=== PATIENT | female | born 1955 | race Caucasian/White ===

== ENCOUNTER 2017-06-04 15:13 | Inpatient (IN) | payer MEDICARE, OTHER ==
[~2017-06-04] VITALS: Ht 160 cm; Wt 59.4 kg
[~2017-06-04 15:13] MED LIST: ACET325S18 PO; ASPI-495 PO; BISA10SU15 RC; BUME2TAB3 PO; BUSP10TA35 PO; CALC-834 PO; CARI350T PO; CHOL200026 PO; CLON0.5T23 PO; DICY10CA59 PO; ESCI20TA PO; ETAN50PE SQ; FENT1PAT2 TD; FOLI1TAB16 PO; HYDR8TAB18 PO; LACT10SO PO; LAMO25TA4 PO; LEVO137T PO; LORA-258 PO; METH2.5T PO; MIDO5TAB PO; MIRT15TA7 PO; MULT1CAP34 PO; PANT40TA4 PO; POLY17PO12 PO; POTA20TA10 PO; PRED5TAB PO; PROC10TA PO; [UNRECOGNIZED DRUG - OTHER]
[2017-06-04] MEDS ORDERED: ONDANSETRON HCL/PF 4 MG/2 ML VIAL IVP ONE (15:30)
[2017-06-04] MEDS ORDERED: IV NS 0.9% 1,000 ML BAG IV ONE ×2 (15:30→21:00)
--- NOTE | 2017-06-04 15:33 | NUR ---
PT BIB RA C/O GENERALIZED WEAKNESS AND BODY PAIN WHICH SHE DESCRIBES "LIKE MY RHEUMATOID ARTHITIS PAIN" X2 DAYS. DENIES FEVER, CHILLS, COUGH, COLD, N/V/D. RESP EVEN UNLABORED. SKIN WARM NONDIAPHORETIC. PT STATES SHE FEELS "LIKE CRAP". IN ER BED 06.
[2017-06-04] MEDS ORDERED: MORPHINE SULFATE INJ 10 MG/ML DISP.SYRIN ONE (15:44)
[2017-06-04] MEDS ORDERED: ONDANSETRON HCL/PF 4 MG/2 ML VIAL ONE (15:44)
[2017-06-04 15:48] LABS: BASOPHILS % (AUTO) 0.4 % (0.0-2.0); EOSINOPHILS # (AUTO) 0.2 /CMM (0.0-0.7); EOSINOPHILS % (AUTO) 1.9 % (0.0-6.0); HEMATOCRIT 44 % (33-45); HEMOGLOBIN 14.5 g/dL (11.5-14.8); LYMPHOCYTES # (AUTO) 1.6 /CMM (0.8-4.8); LYMPHOCYTES % (AUTO) 14.4 % (20.0-44.0); MEAN CORPUSCULAR HEMOGLOBIN 30 PG (26.0-33.0); MEAN CORPUSCULAR HGB CONC 33 g/dl (31.0-36.0); MEAN CORPUSCULAR VOLUME 92 fL (82-100); MONOCYTES % (AUTO) 9.3 % (2.0-12.0); NEUTROPHILS # (AUTO) 8.3 /CMM (1.8-8.9); PLATELET COUNT (AUTO) 325 /CMM (150-450); RDW COEFFICIENT OF VARIATION 12.8 (11.5-15.0); RED BLOOD CELL COUNT(AUTO) 4.75 MIL/uL (4.0-5.2); WHITE BLOOD COUNT (AUTO) 11.1 K/uL (4.3-11.0)
[2017-06-04 15:58] LABS: CREATININE 0.7 mg/dL (0.6-1.3); POTASSIUM 3.3 mmol/L (3.5-5.1)
[2017-06-04] MEDS ORDERED: MORPHINE SULFATE INJ 2 MG/ML DISP.SYRIN IV ONE (16:00)
[2017-06-04 16:04] LABS: ALBUMIN 3.8 g/dL (3.4-5.0); BILIRUBIN,DIRECT 0.1 mg/dL (0.0-0.2); BILIRUBIN,TOTAL 0.2 mg/dL (0.2-1.0); TOTAL PROTEIN, SERUM 7.3 g/dL (6.4-8.2)
[2017-06-04] MEDS ORDERED: IOHEXOL-300 100 ML VIAL IV ONE (16:15)
[2017-06-04] MEDS ORDERED: IV NS 0.9% 250 ML IV ONE (16:16)
--- NOTE | 2017-06-04 17:40 | NUR ---
RAJI, NURSING PACKING FLOOR WORKER, AT BEDSIDE ATTEMPTING TO START IV AFTER 4 OTHER RNS UNABLE TO START IV WHICH CAN SUPPORT IV CONTRAST.
--- NOTE | 2017-06-04 18:04 | NUR ---
URINE SAMPLE OBTAINED BY IN AND OUT CATH PER
[2017-06-04 18:17] LABS: APPEARANCE,URINE Slightly Cloudy (CLEAR); BILIRUBIN,URINE SMALL (NEGATIVE); BLOOD, URINE Moderate Ery/uL (NEGATIVE); COLOR,URINE Yellow (YELLOW); KETONES,URINE Negative (NEGATIVE); LEUKOCYTE ESTERASE ,URINE Negative (NEGATIVE); NITRITE, URINE Positive (NEGATIVE); PROTEIN,URINE 30 mg/dl (NEGATIVE); UGLUCOSE Negative (NEGATIVE)
[2017-06-04 18:36] LABS: BACTERIA,URINE Moderate /HPF (None Seen); RBC,URINE 21-50 /HPF (0-2); SQUAMOUS EPITHELIAL CELL,UR Few /HPF (None Seen)
[2017-06-04] MEDS ORDERED: HYDROMORPHONE 1 MG/1 ML DISP.SYRIN ONE (18:40)
[2017-06-04] MEDS ORDERED: HYDROMORPHONE 1 MG/1 ML DISP.SYRIN IV ONE (19:00)
--- NOTE | 2017-06-04 19:13 | NUR ---
REPORT RECEIVED FORM ANDREW HELLER FOR JACOBO.
--- NOTE | 2017-06-04 19:25 | NUR ---
DR. MORIN AT BEDSIDE SPEAKING TO PT REGARDING POC
[2017-06-04] MEDS ORDERED: HYDROMORPHONE INJ 2 MG/ML DISP.SYRIN IV ONE (19:30)
[2017-06-04] MEDS ORDERED: HYDROMORPHONE INJ 2 MG/ML DISP.SYRIN ONE (19:36)
--- NOTE | 2017-06-04 19:46 | NUR ---
TANSPORTED TO CT VIA STETCHER. VSS.
--- NOTE | 2017-06-04 20:04 | NUR ---
PT BACK FROM CT, VSS.
--- NOTE | 2017-06-04 20:52 | NUR ---
CALLED [facility], INTERN BRAND WAS PAGED.
[2017-06-04] MEDS ORDERED: CEFTRIAXONE 1GM BAG (ER ONLY) 1 GM/50 ML PIGGYBACK IV ONE (21:00)
[2017-06-04] MEDS ORDERED: CEFTRIAXONE 1GM BAG (ER ONLY) 50 ML IV ONE (21:02)
--- NOTE | 2017-06-04 21:08 | NUR ---
MEDICATED PER MD ORDERS.
[2017-06-04] MEDS ORDERED: LORA1TAB82 PO (21:17)
[2017-06-04] MEDS ORDERED: FENT1PAT6 TD (21:39)
--- NOTE | 2017-06-04 22:05 | NUR ---
LAB AT BEDSIDE FOR 2ND LACTIC DRAW
--- NOTE | 2017-06-04 22:45 | NUR ---
PT ADMIT TO TELE RM 309 BED 2, REPORT GIVEN TO ANDREW IZAGUIRRE FOR JACOBO.
[2017-06-04 23:00] VITALS: BP 104/60
--- NOTE | 2017-06-04 23:05 | NUR ---
PT TRANSPORTED TO [facility] 309 BED2 VIA STRETCHER WITH RN, ACLS PROTOCOL. VSS.
--- NOTE | 2017-06-04 23:10 | NUR ---
ADMISSION NOTES: RECEIVED REPORT FROM [facility] PT FROM [facility], CAME IN FOR ABDOMINAL PAIN, N/V, DIARRHEA X3DAYS, BROUGHT TO THE UNIT VIA RADHA, PT A/O X3, ON RA, RESPIRATION EVEN AND UNLABORED, C/O" PAIN FROM WAIST DOWN DUE TO ARTHRITIS" PT VERBALIZED, PT HAS LEFT THUMB IV ACCESS, AND ANN IV, BOTH PATENT AND FLUSHING WELL, ON HL. ORIENTED PT TO UNIT POLICY AND HOURLY ROUNDING, SKIN ASSESSMENT PERFORMED, ALL SKIN ISSUE NOTED DOCUMENTED IN THE SKIN PROBLEM ASSESSMENT, TELE MONITORING SINUS RHYTHM HR 80, PT REQUESTING FELICIANO CATHETER, WILL CALL , INVENTORY OF BELONGINGS COMPLETED BY CRESCENCIO HINOJOSA, SAFETY PRECAUTIONS FOR FALL INITIATED CALL LIGHT IN REACH, WILL CONTINUE TO MONITOR.
--- NOTE | 2017-06-04 23:15 | NUR ---
RN NOTES: NOTED FENTANYL PATCH ON PT'S UPPER ABDOMINAL AREA, STATED THAT'S FOR THE ABDOMINAL PAIN SHE'S BEEN HAVING, PLACED WHEN SHE'S IN [place] [employer] [facility] [employer]
[2017-06-04] MEDS ORDERED: ACETAMINOPHEN 325 MG TABLET PO PRN (23:30)
[2017-06-04] MEDS ORDERED: ZOLPIDEM TARTRATE 5 MG TABLET PO PRN (23:30)
[2017-06-04] MEDS ORDERED: ONDANSETRON HCL/PF 4 MG/2 ML VIAL IV PRN (23:30)
--- NOTE | 2017-06-04 23:49 | NUR ---
RN NOTES: CONTACTED DR SCHULTZ, REGARDING PT INSISTING TO HAVE FELICIANO CATHETER, SHE STATED SHE'S HAVING A HARD TIME WALKING TO THE BATHROOM AND URINATING, DUE TO HER ARTHRITIS, EXPLAINED TO THE PT THAT SHE ALREADY HAVE UTI, AND HAVING FELICIANO CATHERER IS NOT A GOOD OPTION, COULD POSSIBLY AGGRAVATE HER INFECTION. TALKED TO DR SCHULTZ, RELAYED PT REQUEST, PER MD STATED NO TO FELICIANO CATHETER, AND ORDERS TO GIVE NORCO 10/325 MG TAB Q6HR PRN FOR 8-10 PAIN, INFORMED MD PT ALLERGIC TO CODEINE, PER MD TO NOT GIVE NORCO, BUT INSTEAD GIVE MORPHINE 1MG IVP Q4HR PRN FOR 8-10 PAIN, AWARE OF CODEINE ALLERGY.
--- NOTE | 2017-06-04 23:50 | NUR ---
RN NOTES: MD AWARE OF POTASSIUM LEVEL 3.3, NO ORDERS AT THIS TIME
[2017-06-05] VITALS: BP 107/60
[2017-06-05] MEDS ORDERED: MORPHINE SULFATE INJ 10 MG/ML DISP.SYRIN IV PRN
--- NOTE | 2017-06-05 | NUR ---
RN NOTES: PT'S WILLING TO RECEIVE FLU VACCINE PRIOR TO DC
--- NOTE | 2017-06-05 | NUR ---
RN NOTES: PT REFUSED SCD, DUE TO ARTHRITIS PAIN, EDUCATION PROVIDED TO THE PT
[2017-06-05] MEDS ORDERED: MORPHINE SULFATE INJ 10 MG/ML DISP.SYRIN ONE ×2 (00:17→05:36)
[2017-06-05] MEDS: MORPHINE SULFATE INJ 10 MG/ML DISP.SYRIN IV PRN ×3 (00:23→09:30)
--- NOTE | 2017-06-05 00:23 | NUR ---
prn morphine: pt c/o 03/11 pain from abdomen to waist down stating due to arthritis, p[rn morphine 1mg ivp administered to the pt at this time, will continue to monitor and reassess
--- NOTE | 2017-06-05 02:30 | NUR ---
RN NOTES: SEEN PT SLEEPING AT THIS TIME, NO FACIAL GRIMACE NOTED, APPEARS COMFORTABLE
[2017-06-05 04:00] VITALS: BP 101/59
--- NOTE | 2017-06-05 05:39 | NUR ---
prn morphine: pt called crying c/o 03/11 abdominal pain down to her waist due to arthritis pain as pt verbalized, requesting for morphine, prn morphine 1mg ivp administered to the pt at this time, will continue to monitor and reassess,
--- NOTE | 2017-06-05 06:39 | NUR ---
309-2 rn closing notes: pt in bed, awake, on ra, no sob noted, last pain medication administered at 0539am, iv access remains patent and flushing well, both on hl. remains on sinus rhythm hr 80, vs remains stable, needs attended, fenatnyl patch on upper abdominal area, safety precautions for fall remains engaged, call light in reach, will endorse to day rn for eleazar.
[2017-06-05 07:21] LABS: BASOPHILS # (AUTO) 0.1 /CMM (0.0-0.2); EOSINOPHILS # (AUTO) 0.3 /CMM (0.0-0.7); EOSINOPHILS % (AUTO) 4.2 % (0.0-6.0); HEMATOCRIT 39 % (33-45); HEMOGLOBIN 12.8 g/dL (11.5-14.8); LYMPHOCYTES # (AUTO) 1.7 /CMM (0.8-4.8); LYMPHOCYTES % (AUTO) 24.1 % (20.0-44.0); MEAN CORPUSCULAR HEMOGLOBIN 30 PG (26.0-33.0); MEAN CORPUSCULAR HGB CONC 33 g/dl (31.0-36.0); MEAN CORPUSCULAR VOLUME 92 fL (82-100); MONOCYTES # (AUTO) 0.6 /CMM (0.1-1.30); MONOCYTES % (AUTO) 8.7 % (2.0-12.0); NEUTROPHILS # (AUTO) 4.4 /CMM (1.8-8.9); RDW COEFFICIENT OF VARIATION 13.7 (11.5-15.0); RED BLOOD CELL COUNT(AUTO) 4.21 MIL/uL (4.0-5.2); WHITE BLOOD COUNT (AUTO) 7.1 K/uL (4.3-11.0)
--- NOTE | 2017-06-05 07:30 | NUR ---
FILBERT GROWER OPENING NOTE RECEIVED SBAR REPORT AT THE BEDSIDE. PATIENT IS A/O X3, ASLEEP, EASILY AWAKEN. PATIENT IS IN BED, BED IS LOCKED IN LOWEST POSITION, SIDE RAILS UP X3, BED ALARM ON. PATIENT IN RAZOLA'S POSITION. NO S/S PAIN/DISCOMFORT AT THIS TIME. CHEST RISING EQUALLY BILATERALLY, NO DYSPNEA ON REST PRESENT. EXTERNAL MONITOR READING SR 81. ALL NEEDS ARE MET AT THIS TIME. PATIENT EDUCATED TO USE THE CALL LIGHT TO CALL FOR ASSISTANCE. PT VERBALIZED UNDERSTANDING OF THE TEACHING. CALL LIGHT WITHIN REACH. WILL CONTINUE TO ASSESS/MONITOR THROUGHOUT THE SHIFT.
[2017-06-05 07:52] LABS: CALCIUM, SERUM 8.4 mg/dL (8.5-10.1); CREATININE 0.6 mg/dL (0.6-1.3); MAGNESIUM 1.7 mg/dL (1.8-2.4); PHOSPHORUS 3.5 mg/dL (2.5-4.9); POTASSIUM 3.4 mmol/L (3.5-5.1)
[2017-06-05 08:00] VITALS: BP 101/53
[2017-06-05] MEDS ORDERED: clonazePAM 0.5 MG TABLET PO PRN (08:30)
[2017-06-05] MEDS ORDERED: HYDROMORPHONE HCL 2 MG TABLET PO PRN ×2 (08:30)
[2017-06-05] MEDS ORDERED: PROCHLORPERAZINE MALEATE 10 MG TABLET PO SCH (08:30)
[2017-06-05 08:54] LABS: PLATELET COUNT (AUTO) 190 /CMM (150-450)
[2017-06-05] MEDS ORDERED: [UNRECOGNIZED DRUG - OTHER] PO SCH (09:00)
[2017-06-05] MEDS: MULTIVITAMINS,THERAGRAN 1 UDTAB TABLET PO SCH (09:25)
[2017-06-05] MEDS: LORAZEPAM 1 MG TABLET PO SCH (09:25)
[2017-06-05] MEDS: ESCITALOPRAM OXALATE (10 MG) 10 MG TABLET PO SCH (09:26)
[2017-06-05] MEDS: ASPIRIN EC 81 MG TABLET.DR PO SCH ×2 (09:26→09:39)
[2017-06-05] MEDS ORDERED: Magnesium 1GM/D5W 100ML PREMIX 100 ML IV SCH (10:00)
[2017-06-05] MEDS ORDERED: POTASSIUM CL. PREMIX PERIPHER. 50 ML IV SCH (10:00)
--- NOTE | 2017-06-05 12:26 | NUR ---
INSIDE SALES EXECUTIVE NOTE MAGNESIUM AND POTASSIUM WERE SCANNED AND ADMINISTERED AT 1059. MEDICATION WAS SCANNED BUT NOT PROCESSED IN EMAR. MEDICATIONS WERE ONLY ADMINISTERED ONCE ORDERED.
[2017-06-05] MEDS: HYDROMORPHONE INJ 2 MG/ML DISP.SYRIN IV PRN ×2 (15:03→19:33)
[2017-06-05] MEDS: Potassium Chloride 10 MEQ in IV D5/0.45 NACL 1,000 ML IV PRN (15:05)
[2017-06-05 16:00] VITALS: BP 112/63
--- NOTE | 2017-06-05 18:00 | NUR ---
AUTHORS MOTIVATIONAL NOTE PATIENT COMPLAINTS OF BURNING PAIN IN THE NEWLY INSERTED MIDLINE SITE. MIDLINE IS FLUSHED WITH GOOD BLOOD RETURN. NO S/S OF INFILTRATION. PER FABRICIO ASSISTANT PROFESSOR OF SURGERY'S SUGGESTION THE MIDLINE WAS PULLED BACK 1CM. PATIENT VERBALIZED RELIEF OF PAIN/PRESSURE. ARM IS ELEVATED. ICE BAG APPLIED TO THE SITE.
--- NOTE | 2017-06-05 18:17 | NUR ---
MORTAR MAN NOTE PATIENT DENIES PAIN/DISCOMFORT. PATIENT REFUSED CONTINUING THE IV FLUID PRESCRIBED STATING IT [id number] HER VESSELS AND IS THE CAUSE OF HER DISCOMFORT. PATIENT STATED SHE MAY RECONSIDER ALLOWING TO INFUSE THE FLUIDS LATER. WILL ENDORSE TO THE AERONAUTICS TEACHER NURSE TO ASK THE PATIENT LATER.
--- NOTE | 2017-06-05 18:48 | NUR ---
TALLIER CLOSING NOTE PATIENT IS A/O X3, ASLEEP, EASILY AWAKEN. PATIENT IS IN BED, BED IS LOCKED IN LOWEST POSITION, SIDE RAILS UP X3, BED ALARM ON. PATIENT IN ARZOLA'S POSITION. NO S/S PAIN/DISCOMFORT AT THIS TIME. CHEST RISING EQUALLY BILATERALLY, NO DYSPNEA ON REST PRESENT. ALL NEEDS ARE MET AT THIS TIME. PATIENT EDUCATED TO USE THE CALL LIGHT TO CALL FOR ASSISTANCE. PT VERBALIZED UNDERSTANDING OF THE TEACHING. WILL ENDORSE TO THE ARTS MANAGER FOR JACOBO.
--- NOTE | 2017-06-05 19:45 | NUR ---
MSRN VERBALIZES LOWER ABDOMINAL PAIN, OUTGOING RN ADMINISTERED DIL 2MG IVP ORDERED. REPOSITIONS SELF FOR COMFORT. NO SOB, SAFETY PRECAUTIONS EMPHASIZED, WELL UNDERSTOOD. PENDING PAIN MGT CONSULT.
[2017-06-05 20:00] VITALS: BP 105/61
--- NOTE | 2017-06-05 20:49 | NUR ---
MSRN ASLEEP, APPEARS COMFORTABLE.
[2017-06-05 20:51] VITALS: BP 105/61
[2017-06-05] MEDS: clonazePAM 0.5 MG TABLET PO SCH (21:51)
[2017-06-05] MEDS: MIRTAZAPINE 15 MG TABLET PO SCH (21:51)
[2017-06-05] MEDS: CEFTRIAXONE 1 G in IV D5W 50 ML IV SCH (21:58)
--- NOTE | 2017-06-05 22:08 | NUR ---
MSRN SEEN BY CHECK EMBOSSER OF DR. JULISA ABREU. INFORMED PAIN MEDS PATIENT TAKES. STILL NEEDS TO BE SEEN BY PAIN MGT CONSULT. PATIENT REQUESTED ATIVAN TONITE, MEDICATION REGIMEN REVIEWED WITH PATIENT. PER CHECK EMBOSSER CAN HAVE ANOTHER DOSE OF ATIVAN 1MG PO TONIGHT. PER CHECK EMBOSSER WILL BE STARTED ON LAXATIVES, PATIENT WANTED LAXATIVES TO BE STARTED TOMORROW INSTEAD. DUE MEDS FOR TONIGHT ADMINISTERED. KEPT COMFORTABLE.
[2017-06-05] MEDS ORDERED: LORAZEPAM 1 MG TABLET ONE (22:59)
[2017-06-05] MEDS ORDERED: LORAZEPAM 1 MG TABLET PO ONE (23:00)
[2017-06-06] MEDS: HYDROMORPHONE INJ 2 MG/ML DISP.SYRIN IV PRN ×6 (00:38→23:24)
--- NOTE | 2017-06-06 04:30 | NUR ---
MSRN ASSISTED TO RESTROOM, STATED WILL REFUSE LAXATIVES TODAY, STATED TOO WEAK TO GET OUT OF BED OFTEN. SUGGESTED BSC, REFUSED.
--- NOTE | 2017-06-06 05:25 | NUR ---
MSRN LEFT UPPER ARM MIDLINE SITE SWOLLEN, PER PATIENT DOES NOT FEEL PAIN ON THE SITE. HAVE ICU CN CHECK SITE. IVF HELD FOR NOW. ICU CN RESTARTED LINE ON LEFT JUGULAR GAUGE 20 WITH GOOD BLOOD RETURN. DILAUDED 2 MG IVP GIVEN PROIR TO INSERTION.
--- NOTE | 2017-06-06 07:40 | NUR ---
RN OPENING NOTES RECEIVED PT. IN BED A&OX4. BREATHING ON ROOM AIR UNLABORED AND EVENLY. NO S/S OF ACUTE DISTRESS. IV FLUIDS RUNNING VIA EXTERNAL JUGULAR VEIN AT 75 ML/HR. BED IS IN LOWEST, LOCKED POSITION, 2 SIDE RAILS UP, AND INSTRUCTED PT. TO USE A CALL LIGHT FOR ASSISTANCE. ALL NEEDS ATTENDED TO. WILL CONTINUE TO ASSESS AND MONITOR.
[2017-06-06 08:00] VITALS: BP 101/62
[2017-06-06] MEDS ORDERED: LACTULOSE 10 G/15 ML UDC (PYXIS) PO PRN (08:30)
[2017-06-06] MEDS ORDERED: POLYETHYLENE GLYCOL 3350 17 GM POWD.PACK PO PRN (08:30)
[2017-06-06] MEDS ORDERED: METHOTREXATE SODIUM (2.5MG) 2.5 MG TABLET PO SCH (08:30)
[2017-06-06] MEDS: LORAZEPAM 1 MG TABLET PO SCH (09:08)
[2017-06-06] MEDS: MULTIVITAMINS,THERAGRAN 1 UDTAB TABLET PO SCH (09:08)
[2017-06-06] MEDS: DOCUSATE SODIUM 100 MG CAPSULE PO SCH ×2 (09:08→16:37)
[2017-06-06] MEDS: ASPIRIN EC 81 MG TABLET.DR PO SCH (09:09)
[2017-06-06] MEDS: ESCITALOPRAM OXALATE (10 MG) 10 MG TABLET PO SCH (09:09)
[2017-06-06] MEDS: POLYETHYLENE GLYCOL 3350 17 GM POWD.PACK PO PRN ×2 (09:10→18:00)
[2017-06-06] MEDS ORDERED: BACL10TA PO (12:12)
[2017-06-06] MEDS ORDERED: CLON0.5T4 PO (12:12)
[2017-06-06] MEDS ORDERED: ALEN70TA45 PO (12:12)
[2017-06-06] MEDS ORDERED: LINA290C PO (12:12)
[2017-06-06] MEDS ORDERED: TOFA5TAB PO (12:13)
[2017-06-06] MEDS ORDERED: LAMO25TA5 PO (12:16)
--- NOTE | 2017-06-06 14:39 | NUR ---
RN NOTES CALLED DR. BEAR FOR NEW ORDERS, DUE TO PT. NAUSEA, PENTANOL PATCH, AND BENADRYL. Addendum: 06/06/17 at 1441 by RAJ RIVERS RN TALKED TO ANSWERING OUTSIDE B2B SALES AND WAS TOLD THAT DOCTOR WILL BE PAGED.
[2017-06-06 16:00] VITALS: BP 105/60
[2017-06-06] MEDS ORDERED: FENTANYL TD PATCH (50 MCG/HR) 50 MCG/HR PATCH.TD72 TD SCH (16:00)
[2017-06-06] MEDS: PROCHLORPERAZINE MALEATE 10 MG TABLET PO PRN (16:27)
[2017-06-06] MEDS: diphenhydrAMINE HCL 25 MG CAPSULE PO PRN (16:35)
--- NOTE | 2017-06-06 17:45 | NUR ---
RN NOTES PT. WAS SEEN AND EXAMINED BY MIDLINE NURSE. PT. HAD LEFT UPPER ARM MIDLINE REMOVED WITHOUT COMPLICATIONS, AND A NEW MIDLINE INSERTED ON THE LEFT UPPER ARM. LEFT UPPER ARM MIDLINE IS PATENT AND INTACT WITH IV FLUIDS RUNNING.
--- NOTE | 2017-06-06 19:18 | NUR ---
RN CLOSING NOTES PT. IN BED A&OX3. BREATHING UNLABORED, AND EVENLY ON ROOM AIR. NO S/S OF ACUTE DISTRESS. NEW MIDLINE ON RIGHT UPPER ARM IS RUNNING IV FLUIDS AT 75 ML/HR. BED IS IN LOWEST, LOCKED POSITION, 2 SIDE RAILS UP, AND INSTRUCTED PT. TO USE A CALL LIGHT FOR ASSISTANCE. ALL NEEDS ATTENDED TO. WILL ENDORSE REPORT TO NURSE.
--- NOTE | 2017-06-06 19:25 | NUR ---
RN OPEN NOTES RECEIVED PATIENT AWAKE IN BED. A/O X3. NO SIGNS OF DISTRESS OR DISCOMFORT. BREATHING EVEN AND UNLABORED. IV ACCESS IN LEJ AND ANN MIDLINE WITH KCL 20 MEQ IN D5 1/2 NS INFUSING, PATENT AND INTACT, NO SIGNS OF REDNESS OR INFILTRATION. BED IN LOW LOCKED POSITION WITH SIDE RAILS X2. CALL LIGHT WITHIN REACH. WILL CONTINUE TO MONITOR.
[2017-06-06 20:00] VITALS: BP 100/60
[2017-06-06] MEDS ORDERED: LamoTRIgine 25 MG TABLET PO SCH (20:00)
[2017-06-06] MEDS: CEFTRIAXONE 1 G in IV D5W 50 ML IV SCH (20:46)
[2017-06-06] MEDS: LamoTRIgine 25 MG TABLET PO SCH ×2 (20:47→23:24)
[2017-06-06] MEDS: MIRTAZAPINE 15 MG TABLET PO SCH (21:53)
[2017-06-06] MEDS: clonazePAM 0.5 MG TABLET PO SCH (21:53)
--- NOTE | 2017-06-06 22:02 | NUR ---
RN NOTES PATIENT REFUSED MAGNESIUM CITRATE X3. PATIENT STATES SHE WANTS TO TAKE IT IN THE AM BECAUSE SHE DOES NOT WANT TO KEEP GETTING UP TO GO TO THE RESTROOM. PATIENT EDUCATION REINFORCED. WILL CONTINUE TO MONITOR.
[2017-06-06] MEDS ORDERED: MAGNESIUM CITRATE 296 ML BOTTLE PO ONE (22:30)
--- NOTE | 2017-06-06 23:24 | NUR ---
RN NOTES ADMINISTERED DILAUDID 2MG ORDERED FOR PAIN 8/10 IN LOWER ABDOMEN RADIATING TO LOWER BACK. BP 122/70 P79. WILL CONTINUE TO MONITOR.
[2017-06-07] MEDS: HYDROMORPHONE INJ 2 MG/ML DISP.SYRIN IV PRN ×5 (03:33→20:37)
--- NOTE | 2017-06-07 03:33 | NUR ---
RN NOTES ADMINISTERED DILAUDID 2MG ORDERED FOR PAIN 8/10 IN LOWER ABDOMEN RADIATING TO LOWER BACK. BP 102/58 P81. WILL CONTINUE TO MONITOR.
[2017-06-07] MEDS: Potassium Chloride 10 MEQ in IV D5/0.45 NACL 1,000 ML IV PRN ×2 (05:40→22:23)
--- NOTE | 2017-06-07 07:47 | NUR ---
RN CLOSING NOTES PATIENT AWAKE IN BED. A/O X3. NO SIGNS OF DISTRESS OR DISCOMFORT. BREATHING EVEN AND UNLABORED. IV ACCESS IN LEJ AND ANN MIDLINE WITH KCL 20 MEQ IN D5 1/2 NS INFUSING, PATENT AND INTACT, NO SIGNS OF REDNESS OR INFILTRATION. ALL NEEDS MET. NO SIGNIFICANT CHANGES THROUGH THE NIGHT. BED IN LOW LOCKED POSITION WITH SIDE RAILS X2. CALL LIGHT WITHIN REACH. ENDORSED TO AM SHIFT FOR JACOBO.
--- NOTE | 2017-06-07 07:52 | NUR ---
RN MS NOTES PATIENT ALERT AND ORIENTED X3, COMPLAINING OF PAIN ABDOMINAL PAIN RADIATING TO THE BACK 10/10, WILL ADMINISTER PAIN MEDICATION. IVF INFUSING IN MIDLINE, WAREHOUSE INVENTORY CLERK ASSISTED PATIENT TO RESTROOM, SAFETY MEASURES IN PLACED, CALL LIGHT WITHIN REACH, WILL CONTINUE TO MONITOR.
[2017-06-07 08:00] VITALS: BP 128/71
[2017-06-07] MEDS: ASPIRIN EC 81 MG TABLET.DR PO SCH (08:11)
[2017-06-07] MEDS: ESCITALOPRAM OXALATE (10 MG) 10 MG TABLET PO SCH (08:11)
[2017-06-07] MEDS: DOCUSATE SODIUM 100 MG CAPSULE PO SCH ×2 (08:11→16:26)
[2017-06-07] MEDS: LORAZEPAM 1 MG TABLET PO SCH (08:11)
[2017-06-07] MEDS: MULTIVITAMINS,THERAGRAN 1 UDTAB TABLET PO SCH (08:11)
[2017-06-07] MEDS ORDERED: MINERAL OIL 133 ML (PYXIS) 1 EA ENEMA RC PRN (11:30)
[2017-06-07] MEDS ORDERED: MAGNESIUM CITRATE 296 ML BOTTLE PO ONE (11:30)
[2017-06-07 16:00] VITALS: BP 104/59
[2017-06-07] MEDS: PROCHLORPERAZINE MALEATE 10 MG TABLET PO PRN (16:29)
--- NOTE | 2017-06-07 18:38 | NUR ---
RN MS NOTES PATIENT ALERT AND ORIENTED X3, PATIENT HAD 1 LARGE BM AFTER ENEMA, COMPLAINS OF ABDOMINAL PAIN INTERMITTENTLY, CONTINUE ON IVF INFUSING AND TOLERATING WELL, ASSISTED WITH ADLS, CALL LIGHT WITHIN REACH, SAFETY MEASURES IN PLACED, WILL ENDORSE TO HOME DEMONSTRATOR FOR JACOBO.
--- NOTE | 2017-06-07 19:30 | NUR ---
RN NOTES PATIENT IS IN BED ALERT AND ORIENTED X3. VS STABLE. NO C/O PAIN AT THIS TIME. RESPIRATIONS EVEN AND UNLABORED. IV ACCESS ON ANN MIDLINE PATENT AND INTACT. INFUSING D5 1/2 NS + KCL 20 MEQ AT 75 ML/HR. NO REDNESS OR INFILTRATION NOTED. BED IN LOW POSITION. SIDE RAILS X2. CALL LIGHT WITHIN EASY REACH. CONTINUE TO MONITOR.
[2017-06-07 20:00] VITALS: BP 97/58
[2017-06-07] MEDS: LamoTRIgine 25 MG TABLET PO SCH ×2 (20:35→23:23)
--- NOTE | 2017-06-07 20:41 | NUR ---
RN NOTES PATIENT C/O PAIN IN ABDOMEN. DILAUDID 2 MG ADMINISTERED PRN. CONTINUE TO MONITOR.
[2017-06-07] MEDS: CEFTRIAXONE 1 G in IV D5W 50 ML IV SCH (20:52)
[2017-06-07] MEDS: clonazePAM 0.5 MG TABLET PO SCH (21:40)
[2017-06-07] MEDS: MIRTAZAPINE 15 MG TABLET PO SCH (21:40)
[2017-06-07] MEDS: diphenhydrAMINE HCL 25 MG CAPSULE PO PRN (21:40)
[2017-06-08] MEDS: HYDROMORPHONE INJ 2 MG/ML DISP.SYRIN IV PRN ×3 (01:27→09:47)
--- NOTE | 2017-06-08 01:32 | NUR ---
RN NOTES PATIENT C/O PAIN IN ABDOMEN. DILAUDID 2 MG ADMINISTERED PRN. CONTINUE TO MONITOR.
--- NOTE | 2017-06-08 05:24 | NUR ---
RN NOTES PATIENT C/O PAIN IN ABDOMEN. DILAUDID 2 MG ADMINISTERED PRN. CONTINUE TO MONITOR.
[2017-06-08 06:49] LABS: BASOPHILS % (AUTO) 0.5 % (0.0-2.0); EOSINOPHILS # (AUTO) 0.3 /CMM (0.0-0.7); EOSINOPHILS % (AUTO) 5.3 % (0.0-6.0); HEMATOCRIT 42 % (33-45); HEMOGLOBIN 13.8 g/dL (11.5-14.8); LYMPHOCYTES # (AUTO) 1.1 /CMM (0.8-4.8); MEAN CORPUSCULAR HEMOGLOBIN 31 PG (26.0-33.0); MEAN CORPUSCULAR HGB CONC 33 g/dl (31.0-36.0); MEAN CORPUSCULAR VOLUME 92 fL (82-100); MONOCYTES # (AUTO) 0.7 /CMM (0.1-1.30); MONOCYTES % (AUTO) 12.8 % (2.0-12.0); NEUTROPHILS # (AUTO) 3.1 /CMM (1.8-8.9); NEUTROPHILS % (AUTO) 59.4 % (43.0-81.0); PLATELET COUNT (AUTO) 279 /CMM (150-450); RDW COEFFICIENT OF VARIATION 13.6 (11.5-15.0); RED BLOOD CELL COUNT(AUTO) 4.53 MIL/uL (4.0-5.2); WHITE BLOOD COUNT (AUTO) 5.2 K/uL (4.3-11.0)
[2017-06-08 07:13] LABS: CALCIUM, SERUM 8.6 mg/dL (8.5-10.1); CREATININE 0.5 mg/dL (0.6-1.3); MAGNESIUM 2.1 mg/dL (1.8-2.4); PHOSPHORUS 3.7 mg/dL (2.5-4.9); POTASSIUM 3.8 mmol/L (3.5-5.1)
--- NOTE | 2017-06-08 07:15 | NUR ---
MS RN initial notes Received pt in bed,asleep,on room air, no SOB, no apparent distress noted. IV site ANN intact, patent.no s/sx of infiltration noted. On D5 1/2 NS @ 75 ml/hr. Call light within reach.Will continue to monitor accordingly. Safety measures implemented.
--- NOTE | 2017-06-08 07:25 | NUR ---
RN NOTES PATIENT IS SLEEPING IN BED, ALERT AND ORIENTED X3. VS STABLE. NO C/O PAIN AT THIS TIME. RESPIRATIONS EVEN AND UNLABORED. IV ACCESS ON ANN MIDLINE PATENT AND INTACT. INFUSING D5 1/2 NS + KCL 20 MEQ AT 75 ML/HR. NO REDNESS OR INFILTRATION NOTED. ALL MEDICATIONS GIVEN PER MD ORDER. BED IN LOW POSITION. SIDE RAILS X2. WILL ENDORSE TO RN DAY SHIFT FOR CONTINUITY OF CARE.
[2017-06-08 08:00] VITALS: BP 92/58
[2017-06-08] MEDS: LORAZEPAM 1 MG TABLET PO SCH (08:36)
[2017-06-08] MEDS: ESCITALOPRAM OXALATE (10 MG) 10 MG TABLET PO SCH (08:36)
[2017-06-08] MEDS: MULTIVITAMINS,THERAGRAN 1 UDTAB TABLET PO SCH (08:36)
[2017-06-08] MEDS: ASPIRIN EC 81 MG TABLET.DR PO SCH (08:36)
[2017-06-08] MEDS: DOCUSATE SODIUM 100 MG CAPSULE PO SCH (08:36)
--- NOTE | 2017-06-08 15:15 | NUR ---
MS financial writer notes Pt discharged in stable condition, alert, awake, verbally responsive, on room air. Denies any pain or discomfort at this time. Discharge instruction given to the pt regarding the disease process and medications,verbalized understanding.IV accesses removed,tolerated procedure well, no bleeding noted. Picked up by ambulance, report given to NADREW Ryan supervisor floor assembly at [facility]
== END 2017-06-08 15:18 | DRG 690 ==
LOC: ER 15:15 → TELE 22:31 → MED 06-05 08:54
PROVIDERS: ADMIT Internal Medicine; ATTEND Internal Medicine
PROC: 05H533Z Insertion of Infusion Device into Right Subclavian Vein, Percutaneous Approach (ICD-10-PCS; principal; 2017-06-06)
PROC: B546ZZA Ultrasonography of Right Subclavian Vein, Guidance (ICD-10-PCS; 2017-06-06)
DX: N39.0 Urinary tract infection, site not specified (principal); E83.42 Hypomagnesemia; E87.2 Acidosis; K59.03 Drug induced constipation; D72.829 Elevated white blood cell count, unspecified; I10 Essential (primary) hypertension; E87.6 Hypokalemia; G89.4 Chronic pain syndrome; T40.605A Adverse effect of unspecified narcotics, initial encounter; Y92.129 Unspecified place in nursing home as the place of occurrence of the external cause; M81.0 Age-related osteoporosis without current pathological fracture; Z79.899 Other long term (current) drug therapy; Z87.19 Personal history of other diseases of the digestive system; B96.20 Unspecified Escherichia coli [E. coli] as the cause of diseases classified elsewhere
CPT/HCPCS: 36415; 36569; 71010-TC; 80048-TC; 80076-TC; 81000-TC; 83605-TC; 83690-TC; 83735-TC; 84100-TC; 85025-TC; 87081-TC; 87086-TC; 87186-TC; A4606; J0696; J1170; J2270; J2405; J3475; J3480; J3490; J7030; J7050; J7060; J8610; Q0163; Q0164; Q9967; Z7610

== ENCOUNTER 2019-06-30 13:28 | Inpatient (IN) | payer MEDICARE, OTHER ==
[~2019-06-30] VITALS: Ht 160 cm; Wt 77.1 kg
[~2019-06-30 13:28] MED LIST changes: -ACET325S18 PO; +ALEN70TA6 PO; -ASPI-495 PO; +BACL10TA PO; -BISA10SU15 RC; -BUME2TAB3 PO; -BUSP10TA35 PO; -CALC-834 PO; -CARI350T PO; -CHOL200026 PO; -CLON0.5T23 PO; +CLON0.5T4 PO; -DICY10CA59 PO; -ETAN50PE SQ; -FENT1PAT2 TD; +FENT1PAT6 TD; -FOLI1TAB16 PO; -LACT10SO PO; +LAMO25TA5 PO; -LEVO137T PO; +LINA290C PO; -LORA-258 PO; +LORA-259 PO; -MIDO5TAB PO; -MULT1CAP34 PO; -PANT40TA4 PO; -POLY17PO12 PO; -POTA20TA10 PO; -PRED5TAB PO; -PROC10TA PO; +PROC10TA13 PO; +TOFA5TAB PO; +VANCOMYCIN 1 GM in IV NS 0.9% 250 ML IV SCH; -[UNRECOGNIZED DRUG - OTHER]
--- NOTE | 2019-06-30 13:35 | NUR ---
[facility] From [facility]"BLE Cellulitis x1wk", PT AAOX4, -SOB, NAD NOTED, VSS ,PENDING MD RAMSEY
[2019-06-30] MEDS ORDERED: PIPERACILLIN /TAZOBACTAM 3.375 G in IV D5W 50 ML IV ONE (14:30)
[2019-06-30] MEDS ORDERED: VANCOMYCIN 1 GM in IV D5W 250 ML IV ONE (14:30)
[2019-06-30] MEDS ORDERED: IV NS 0.9% 500 ML BAG IV ONE (14:30)
[2019-06-30 14:36] LABS: BASOPHILS % (AUTO) 0.5 % (0.0-2.0); EOSINOPHILS % (AUTO) 5.3 % (0.0-6.0); HEMATOCRIT 34 % (33-45); HEMOGLOBIN 11.1 g/dL (11.5-14.8); LYMPHOCYTES # (AUTO) 1.6 /CMM (0.8-4.8); LYMPHOCYTES % (AUTO) 19.6 % (20.0-44.0); MEAN CORPUSCULAR HGB CONC 33 g/dl (31.0-36.0); MEAN CORPUSCULAR VOLUME 95 fL (82-100); MONOCYTES # (AUTO) 0.8 /CMM (0.1-1.30); NEUTROPHILS # (AUTO) 5.3 /CMM (1.8-8.9); NEUTROPHILS % (AUTO) 64.6 % (43.0-81.0); PLATELET COUNT (AUTO) 319 /CMM (150-450); RED BLOOD CELL COUNT(AUTO) 3.52 MIL/uL (4.0-5.2); WHITE BLOOD COUNT (AUTO) 8.1 K/uL (4.3-11.0)
[2019-06-30 14:54] LABS: ALANINE AMINOTRANSFERASE 25 U/L (12-78); ALBUMIN 3.3 g/dL (3.4-5.0); ALKALINE PHOSPHATASE 168 U/L (46-116); ASPARTATE AMINOTRANSFERASE 31 U/L (15-37); BILIRUBIN,DIRECT 0.1 mg/dL (0.0-0.2); BILIRUBIN,TOTAL 0.2 mg/dL (0.2-1.0); CALCIUM, SERUM 9.6 mg/dL (8.5-10.1); CARBON DIOXIDE 33 mmol/L (21-32); CHLORIDE 104 mmol/L (98-107); CREATININE 0.9 mg/dL (0.6-1.3); GLUCOSE 91 mg/dL (74-106); POTASSIUM 3.4 mmol/L (3.5-5.1); SODIUM SERUM 141 mmol/L (136-145); TOTAL PROTEIN, SERUM 6.3 g/dL (6.4-8.2); UREA NITROGEN, BLOOD 16 mg/dL (7-18)
[2019-06-30] MEDS ORDERED: HYDROMORPHONE 1 MG/1 ML DISP.SYRIN ONE (15:01)
--- NOTE | 2019-06-30 15:05 | NUR ---
VERBAL ORDER: DILAUDID 1MG IVP GIVEN L SHOULDER IVP
[2019-06-30] MEDS ORDERED: HYDROMORPHONE INJ 2 MG/ML DISP.SYRIN IV ONE (15:30)
[2019-06-30] MEDS ORDERED: OXYC15TA2 PO (15:34)
[2019-06-30] MEDS ORDERED: LAMO25TA5 PO (15:34)
[2019-06-30] MEDS ORDERED: CLON0.5T4 PO (15:34)
[2019-06-30] MEDS ORDERED: TOFA5TAB PO (15:34)
[2019-06-30] MEDS ORDERED: PROC10TA13 PO (15:34)
[2019-06-30] MEDS ORDERED: METH2.5T PO (15:34)
[2019-06-30] MEDS ORDERED: MIRT15TA7 PO (15:34)
[2019-06-30] MEDS ORDERED: LAMO25TA4 PO (15:34)
[2019-06-30] MEDS ORDERED: [UNRECOGNIZED DRUG - CODE] PO (15:34)
[2019-06-30] MEDS ORDERED: POLY17PO4 PO (15:34)
[2019-06-30] MEDS ORDERED: ASPI-1169 PO (15:34)
[2019-06-30] MEDS ORDERED: DOCU-141 PO (15:34)
[2019-06-30] MEDS ORDERED: OMEP20TA5 PO (15:34)
[2019-06-30] MEDS ORDERED: HYDR-4354 PO (15:34)
[2019-06-30] MEDS ORDERED: ESCI20TA PO (15:34)
[2019-06-30] MEDS ORDERED: FOLI0.8T PO (15:34)
--- NOTE | 2019-06-30 15:44 | NUR ---
GOT BED 315-2
[2019-06-30 15:47] LABS: APPEARANCE,URINE Slightly Cloudy (CLEAR); BILIRUBIN,URINE Negative (NEGATIVE); BLOOD, URINE Trace-intact Ery/uL (NEGATIVE); COLOR,URINE Yellow (YELLOW); KETONES,URINE Negative (NEGATIVE); LEUKOCYTE ESTERASE ,URINE Negative (NEGATIVE); NITRITE, URINE Negative (NEGATIVE); PROTEIN,URINE Negative (NEGATIVE); UGLUCOSE Negative (NEGATIVE); UROBILINOGEN,URINE 0.2 EU/dL (0.2)
--- NOTE | 2019-06-30 15:51 | NUR ---
CALLED [facility] [phone] MASSEY
[2019-06-30 16:16] LABS: BACTERIA,URINE Few /HPF (None Seen); SQUAMOUS EPITHELIAL CELL,UR Few /HPF (None Seen); URINE AMORPHOUS URATE Moderate /HPF (None Seen); WBC,URINE 0-2 /HPF (0-3)
--- NOTE | 2019-06-30 16:23 | NUR ---
REPORT GIVEN TO NORMA MORALES FOR JACOBO PT WILL BE TRANSPORTED TO 3RD FLOOR
--- NOTE | 2019-06-30 16:42 | NUR ---
PT TRANSPORTED TO 3RD FLOOR
[2019-06-30 16:45] VITALS: BP 128/48
--- NOTE | 2019-06-30 16:45 | NUR ---
MS RN OPENING NOTES RECEIVED PATIENT VIA GURNEY, ALERT AND ORIENTED X4. NO SOB. DENIES ANY C/O PAIN NOR DISCOMFORT AT THIS TIME. LEFT SHOULDER #20 INTACT AND PATENT WITHOUT S/S OF COMPLICATIONS. SKIN BODY ASSESSMENT DONE. BLE WITH PITTING EDEMA AND REDNESS WITH WOUND PRESENT. ELEVATED LOWER EXTREMITIES WITH PILLOW. ORIENTED PATIENT TO ROOM, UNIT AND CALL LIGHT. RESTING COMFORTABLY IN BED. BED IN LOWEST POSITION, LOCKED. BED ALARM ON. CALL LIGHT WITHIN REACH.
[2019-06-30] MEDS ORDERED: HYDROCODONE/APAP 5/325MG 1 EACH TABLET PO PRN (17:30)
[2019-06-30] MEDS ORDERED: ACETAMINOPHEN 325 MG TABLET PO PRN (17:30)
[2019-06-30] MEDS ORDERED: Z GUARD REMEDY 2 OZ OINT TP PRN (17:30)
[2019-06-30] MEDS ORDERED: MAGNESIUM HYDROXIDE 30 ML UDC PO PRN (17:30)
[2019-06-30] MEDS ORDERED: DEXTROSE 50%-WATER 50 ML DISP.SYRIN IV PRN (17:30)
[2019-06-30] MEDS ORDERED: INSULIN REGULAR, HUMAN 100 UNIT/ML 3 ML VIAL SQ PRN (17:30)
[2019-06-30] MEDS ORDERED: *INSULIN REGULAR(HUMULIN R)HUM 100 UNIT/ML VIAL SQ PRN (17:30)
[2019-06-30] MEDS ORDERED: MAG HYDROX/AL HYDROX/SIMETH 30 ML UDC PO PRN (17:30)
[2019-06-30] MEDS ORDERED: ONDANSETRON HCL/PF 4 MG/2 ML VIAL IVP PRN (17:30)
[2019-06-30] MEDS ORDERED: POLYETHYLENE GLYCOL 3350 17 GM POWD.PACK PO PRN (17:30)
[2019-06-30] MEDS ORDERED: FEE PK DOSING 1 MIN EA MC ONE (18:52)
[2019-06-30] MEDS: BLOOD SUGAR DIAGNOSTIC 1 EACH STRIP VI SCH ×2 (18:56→21:50)
[2019-06-30] MEDS: HYDROMORPHONE INJ 2 MG/ML DISP.SYRIN IV PRN (19:00)
[2019-06-30] MEDS ORDERED: METOCLOPRAMIDE HCL 10 MG/2 ML VIAL IV SCH (19:00)
[2019-06-30] MEDS ORDERED: PROCHLORPERAZINE EDISYLATE 10 MG/2 ML VIAL IM PRN (19:00)
--- NOTE | 2019-06-30 19:00 | NUR ---
MS RN CLOSING NOTES PATIENT RESTING COMFORTABLY IN BED. ENDORSED TO ONCOMING SHIFT FOR CONTINUATION OF CARE. ABLE TO VERBALIZE NEEDS. BED IN LOWEST POSITION. IN NO APPARENT DISTRESS. CALL LIGHT WITHIN REACH.
[2019-06-30] MEDS ORDERED: METOCLOPRAMIDE HCL 10 MG/2 ML VIAL IV PRN (19:30)
--- NOTE | 2019-06-30 19:50 | NUR ---
MS/RN OPENING NOTES RECEIVED PATIENT IN BED, AWAKE AND ABLE TO VERBALIZE NEEDS, REPORTED PAIN OF 8/10 IN LOWER LEGS AND GENERALIZED. LAST PAIN MEDICATION GIVEN ONE HOUR AGO. PATIENT MEDICATION REPORTED TO MD AND WITH SOME PATIENT REQUEST FOR SLEEP AND ITCHING. MD MATUTE MADE AWARE. TO CHANGE N/V MEDICINE TO COMPAZINE 10 MG EVERY 6 PRN, AMBIEN 10MG PRN FOR SLEEP AND BENADRYL 25MG IV EVERY 6 HRS. PRN. PATIENT MADE AWARE. WILL MONITOR. RESPIRATIONS EVEN AND UNLABORES, OBSERVED LOWER EXTREMITIES REDNESS AND SWOLLEN, WITH FELICIANO. WITH CANE. WILL MONITOR. BED ALONSO, CALL LIGHTS WITHIN REACH.
[2019-06-30 20:00] VITALS: BP 97/51
[2019-06-30] MEDS ORDERED: PROCHLORPERAZINE MALEATE 10 MG TABLET PO PRN (20:00)
--- NOTE | 2019-06-30 20:02 | NUR ---
MS/RN NOTES MD ORDER RECEIVED AND CARRIED OUT, TO FOLLOW UP WITH PHARMACY.
--- NOTE | 2019-06-30 20:43 | NUR ---
ms/rn notes PHARMACY VERIFIED ALL ORDERS
--- NOTE | 2019-06-30 20:43 | NUR ---
MS/RN NOTES PATIENT REPORTED ITCHING ALL AROUND BODY, IV BWENADRYL 25 MG TO ADMINISTER, ALSO PSCEHDULED PAIN MEDICATION FOR PAIN OXY IR15 MG PO.
[2019-06-30] MEDS: diphenhydrAMINE HCL 50 MG/ML VIAL IV PRN (20:45)
[2019-06-30] MEDS: oxyCODONE IR immediate release 5 MG PO SCH (20:46)
[2019-06-30] MEDS: PIPERACILLIN /TAZOBACTAM 3.375 G in IV D5W 50 ML IV SCH (21:30)
[2019-06-30] MEDS: MIRTAZAPINE 15 MG TABLET PO SCH (21:31)
[2019-06-30] MEDS: LamoTRIgine 25 MG TABLET PO SCH (21:31)
[2019-06-30] MEDS: clonazePAM 0.5 MG TABLET PO SCH (21:31)
[2019-06-30] MEDS: ZOLPIDEM TARTRATE 10 MG TABLET PO PRN (22:35)
--- NOTE | 2019-06-30 22:40 | NUR ---
MS/RN NOTES INA WAS ADMINISTERED MEDICATION AMBIEN 10 MG PO FOR SLEEP. MONITORING FOR SLEEP .
--- NOTE | 2019-06-30 23:27 | NUR ---
MS/RN NOTES PATIETN REQUESTED TO HAVE SMOKING BREAK AGAIN LATE AT NIGHT WAS INSTRUCTED PER PROTOCOL TIME OF SMOKING AND MADE AWARE. Addendum: 06/30/19 at 5309 by FLORY SEN RN PLS DISREGARD FOR DIFFERENT PATIENT.
--- NOTE | 2019-07-01 00:22 | NUR ---
ms/rn notes PATIENT AWOKEN FROM SLEEP REQUESTING FOR PAIN MEDICATION DISCUSSED INTERVENTION BY CHECKING BLOOD PRESSURE AND FLUIDS. DISTRACT AND KEPT ENVIRONMENT QUIET. PATIENT PROVIDED EDUCATION
[2019-07-01] MEDS: VANCOMYCIN 1 GM in IV D5W 250ml IV SCH ×2 (04:00→16:57)
[2019-07-01] MEDS: PIPERACILLIN /TAZOBACTAM 3.375 G in IV D5W 50 ML IV SCH (05:03)
--- NOTE | 2019-07-01 06:34 | NUR ---
MS/RN NOTES PATIENT ASLEEP WHEN AWAKEN REQUESTED TO HAVE BLOOD SUGAR CHECK FEW MINUTES BEFORE BREAKFAST TIME.
--- NOTE | 2019-07-01 06:40 | NUR ---
MS/RN NOTES PATIENT IN BED, RESTING AND ASLEEP AT THIS TIME. RESPIRATIONS EVEN AND UNLABORED, NO GRIMACE OR GUARDING, REFUSE TO HAVE BLOOD SUGAR CHECK EARLY TO WAIT ONCE BREAKFAST IS OUT. ABLE TO REPOSITION WITH ASSIST DUE TO SELLING AND REDNESS ON LOWER EXTREMITIES, WILL MONITOR.
[2019-07-01 06:46] LABS: BASOPHILS % (AUTO) 0.8 % (0.0-2.0); EOSINOPHILS % (AUTO) 6.1 % (0.0-6.0); HEMATOCRIT 29 % (33-45); LYMPHOCYTES % (AUTO) 15.8 % (20.0-44.0); MEAN CORPUSCULAR HGB CONC 34 g/dl (31.0-36.0); MEAN CORPUSCULAR VOLUME 95 fL (82-100); MONOCYTES # (AUTO) 0.9 /CMM (0.1-1.30); MONOCYTES % (AUTO) 13.5 % (2.0-12.0); NEUTROPHILS # (AUTO) 4.2 /CMM (1.8-8.9); NEUTROPHILS % (AUTO) 63.8 % (43.0-81.0); PLATELET COUNT (AUTO) 265 /CMM (150-450); WHITE BLOOD COUNT (AUTO) 6.6 K/uL (4.3-11.0)
[2019-07-01] MEDS: BLOOD SUGAR DIAGNOSTIC 1 EACH STRIP VI SCH ×4 (06:52→21:08)
--- NOTE | 2019-07-01 06:54 | NUR ---
BLOOD SUGAR CHECK AT 96
[2019-07-01 07:11] LABS: CREATININE 0.8 mg/dL (0.6-1.3); MAGNESIUM 1.7 mg/dL (1.8-2.4); PHOSPHORUS 2.7 mg/dL (2.5-4.9); POTASSIUM 3.1 mmol/L (3.5-5.1)
--- NOTE | 2019-07-01 07:22 | NUR ---
MS RN OPENING NOTE PATIENT IN BED RESTING COMFORTABLY. PATIENT IN NO ACUTE DISTRESS. NO SOB NOTED. PATIENT BREATHING IS EVEN AND UNLABORED. PATIENT NEEDS AND CONCERNS MET. PATIENT BED ALARM IS ON. SAFETY PRECAUTIONS IN PLACE. PATIENT BED IS LOCKED AND IN LOWEST POSITION. CALL LIGHT WITHIN REACH. WILL CONTINUE TO MONITOR.
[2019-07-01 07:55] VITALS: BP 95/56
[2019-07-01] MEDS: oxyCODONE IR immediate release 5 MG PO SCH (08:15)
[2019-07-01] MEDS: PANTOPRAZOLE 40 MG TABLET.DR PO SCH (08:15)
[2019-07-01] MEDS: DOCUSATE SODIUM 100 MG CAPSULE PO SCH ×3 (08:16→16:11)
[2019-07-01] MEDS: MULTIVIT W/MINERALS 1 TAB TABLET PO SCH (08:16)
[2019-07-01] MEDS: Magnesium 1GM/D5W 100ML PREMIX 100 ML IV SCH ×2 (08:16→09:21)
[2019-07-01] MEDS: FOLIC ACID 1 MG TABLET PO SCH (08:16)
[2019-07-01] MEDS: ESCITALOPRAM OXALATE (10 MG) 10 MG TABLET PO SCH (08:16)
[2019-07-01] MEDS: ASPIRIN 81 MG TAB.CHEW PO SCH (08:16)
[2019-07-01] MEDS ORDERED: POTASSIUM CHLORIDE 20 MEQ TAB.PRT.SR PO ONE (08:30)
[2019-07-01] MEDS ORDERED: oxyCODONE/APAP (5/325 MG) 1 UDTAB TABLET PO PRN (08:30)
[2019-07-01] MEDS ORDERED: FUROSEMIDE 20 MG TABLET PO SCH (09:00)
[2019-07-01 09:16] VITALS: BP 109/60
[2019-07-01] MEDS: HYDROMORPHONE INJ 2 MG/ML DISP.SYRIN IV PRN ×2 (09:19→14:46)
[2019-07-01] MEDS ORDERED: FUROSEMIDE 40 MG/4 ML VIAL IV ONE (10:30)
--- NOTE | 2019-07-01 11:48 | NUR ---
MS RN NOTE BLOOD SUGAR CHECK WAS 108. NO INSULIN COVERAGE PER PROTOCOL.
--- NOTE | 2019-07-01 12:00 | NUR ---
MS RN NOTE PATIENT UNABLE TO PROVIDE MEDICATION XEJANZ. PER PATIENT NOBODY CAN BRING IT EITHER. PATIENT STATED " IT IS OKAY, I DONT NEED IT OF NOW". PHARMACY MADE AWARE.
[2019-07-01] MEDS: diphenhydrAMINE HCL 50 MG/ML VIAL IV PRN (13:29)
[2019-07-01 13:38] VITALS: BP 116/56
[2019-07-01 15:47] LABS: OSMOLALITY,URINE 247 mOS/kg (340-1090)
[2019-07-01 16:00] VITALS: BP 102/53
[2019-07-01 17:09] LABS: CHLORIDE,URINE RANDOM 70 mmol/L (55-125); POTASSIUM RNDM,URINE 11 mmol/L (25-125); URINE SODIUM, RANDOM 95 mmol/l (40-220)
--- NOTE | 2019-07-01 17:12 | NUR ---
MS RN NOTE PATIENT BLOOD SUGAR IS 97. PER PROTOCOL NO INSULIN COVERAGE GIVEN.
--- NOTE | 2019-07-01 18:24 | NUR ---
MS RN CLOSING NOTE PATIENT IN BED RESTING COMFORTABLY. PATIENT IN NO ACUTE DISTRESS. NO SOB NOTED. PATIENT BREATHING IS EVEN AND UNLABORED. PATIENT NEEDS AND CONCERNS ADDRESSED. PATIENT PAIN IS 3/10 AT THIS TIME AND IS TOLERABLE PER PATIENT. PATIENT FELICIANO CATHETER HANGING TO GRAVITY DRAINING CLEAR YELLOW FLUID. PATIENT KEPT CLEAN, DRY, AND COMFORTABLE THROUGHOUT SHIFT. EXTREMITIES OFFLOADED ON PILLOWS. PATIENT BED IS LOCKED AND IN LOWEST POSITION. CALL LIGHT WITHIN REACH. WILL ENDORSE CARE TO PM SHIFT FOR JACOBO.
--- NOTE | 2019-07-01 19:15 | NUR ---
MS RN NOTE GAVE PATIENT HOME MEDICATIONS TO JOSSY FROM PHARMACY IN MEDICATION BAG. PHARMACY IS CLOSED BUT PER JOSSY WILL KEEP IN PHARMACY AND INPUT TOMORROW MORNING. RECEIPT KEPT IN CHART. DIRT BIKE RACER NURSE AWARE AND SHE WILL FOLLOW UP TOMORROW MORNING.
--- NOTE | 2019-07-01 19:33 | NUR ---
MS/RN NOTES RECEIVED PATIENT IN BED, AWAKE, ALERT, WITH GRIMACE AND GUARDING. REPORTED PAIN INFORMED ABOUT ROUTINE PAIN MEDICATION TO GIVE, BLOOD PRESSURE SBP ABOVE 110. RESPIRATIONS EVEN AND UNLABORED, SKIN WARM TO TOUCH, BED LOCKED, RECEIVED ENDORSEMENT FROM AM RN FOR JACOBO, HOME MEDICATION RECEIVED AND AM RN INFORMED PHARMACY, BED LOCKED, CALL LIGHTS WITHIN REACH, PATIENT PROVIDED FLUIDS, ABLE TO HAVE DINNERM WILL CONTINUE CARE. IV ON LEFT SHOULDER PATENT, WILL MONITOR.
[2019-07-01 19:44] VITALS: BP 114/59
[2019-07-01 20:00] VITALS: BP 114/59
[2019-07-01] MEDS: oxyCODONE HCL SR 10MG TAB.SR.12H PO SCH (20:02)
[2019-07-01] MEDS: clonazePAM 0.5 MG TABLET PO SCH (21:08)
[2019-07-01] MEDS: MIRTAZAPINE 15 MG TABLET PO SCH (21:08)
[2019-07-01] MEDS: LamoTRIgine 25 MG TABLET PO SCH (21:08)
--- NOTE | 2019-07-01 21:16 | NUR ---
MS/RN NOTES PATIENT AWAKE, ABLE TO VERBALIZE NEEDS, TOLERATED ORAL MEDICATION,DISCUSSED MEDICATION WITH PATIENT, REPORTED WILL BE REQESTING MEDICATION TO HELP HER SLEEP AFTER AN HOUR.
--- NOTE | 2019-07-01 22:14 | NUR ---
MS/RN NOTES BLE WITH EDEMA AND REDNESS, ELEVATED, OFF LOAD WITH PILLOWS. PATIENT REQUESTED FOR MEDICATION NEEDED FOR SLEEP AMBIEN 10 MG PO. WILL ADMINISTER ORAL.
[2019-07-01] MEDS: ZOLPIDEM TARTRATE 10 MG TABLET PO PRN (22:16)
--- NOTE | 2019-07-02 04:40 | NUR ---
MS/RN NOTES VANCO TROUGH LEVEL 15, IV VANCOMYCIN TO ADMINISTER WITH PRESCRIBED DOSE.
[2019-07-02] MEDS: VANCOMYCIN 1 GM in IV D5W 250ml IV SCH ×2 (04:45→18:17)
[2019-07-02 06:23] LABS: BASOPHILS % (AUTO) 0.5 % (0.0-2.0); EOSINOPHILS % (AUTO) 6.2 % (0.0-6.0); HEMATOCRIT 33 % (33-45); HEMOGLOBIN 11.1 g/dL (11.5-14.8); LYMPHOCYTES # (AUTO) 0.9 /CMM (0.8-4.8); LYMPHOCYTES % (AUTO) 14.9 % (20.0-44.0); MEAN CORPUSCULAR HGB CONC 34 g/dl (31.0-36.0); MEAN CORPUSCULAR VOLUME 95 fL (82-100); MONOCYTES # (AUTO) 0.8 /CMM (0.1-1.30); MONOCYTES % (AUTO) 13.2 % (2.0-12.0); NEUTROPHILS % (AUTO) 65.2 % (43.0-81.0); PLATELET COUNT (AUTO) 298 /CMM (150-450); WHITE BLOOD COUNT (AUTO) 6.1 K/uL (4.3-11.0)
[2019-07-02] MEDS: BLOOD SUGAR DIAGNOSTIC 1 EACH STRIP VI SCH ×4 (06:27→21:47)
--- NOTE | 2019-07-02 06:38 | NUR ---
MS/RN CLOSING NOTES 'PATIENT ABLE TO SLEEP DURING THE NIGHT, WITH NEEDED MEDICATION FOR SLEEP, RESPIRATIONS EVEN AND UNLABORED CAN VERBALIZE NEEDS AND REPOSITION SELF, ABLE TO DO SELF CARE WITH ASSISTANCE, BED LOCKED, CALL LIGHTS WITHIN REACH, PATIENT BLOOD SUGAR CHECK WNL AND WOULD LIKE TO KNOW WHEN HIS PAIN MEDICATION DUE WAS AWARE THAT WILL BE GETTING IT IN THE MORNING BY 9AM TO INFORM.WILL ENDORSE TO AM RN FOR JACOBO.
--- NOTE | 2019-07-02 06:42 | NUR ---
MS/RN NOTES PATIENT WITH FELICIANO CATHETER DRAINING YELLOW COLOR URINE.
[2019-07-02 06:46] LABS: CALCIUM, SERUM 8.1 mg/dL (8.5-10.1); CREATININE 0.7 mg/dL (0.6-1.3); MAGNESIUM 2.3 mg/dL (1.8-2.4); PHOSPHORUS 2.9 mg/dL (2.5-4.9); POTASSIUM 3.5 mmol/L (3.5-5.1)
[2019-07-02 08:00] VITALS: BP_SYST 104; BP_SYST 127; BP_DIAS 62; BP_DIAS 86
--- NOTE | 2019-07-02 08:00 | NUR ---
RN NOTES RECEIVED PATIENT IN THE BED A/O X3. PATIENT HAD NO ACUTE RESPIRATORY DISTRESS. BREATHING UNLABORED, V/S TAKEN STABLE. PATIENT WAS COMPLAINING OF BILATERAL LOWER EXTREMITIES PAIN 9/10 PER PAIN SCALE. PATIENT HAS REDNESS AND EDEMA BIE, ELEVATED USING PILLOWS. IV ACCESS ON LEFT SHOULDER, F/C DRAINING LIGHT YELLOW OUTPUT. ADMINISTERED SCHEDULED MEDICATION. PATIENT AMBULATORY USING CANE. NEEDS ATTENDED AND ANTICIPATED. FALL PRECAUTION MAINTAINED ALL THE TIME. CALL LIGHT WITHIN TO REACH, CONTINUED MONITORING.,
[2019-07-02] MEDS: ESCITALOPRAM OXALATE (10 MG) 10 MG TABLET PO SCH (08:23)
[2019-07-02] MEDS: DOCUSATE SODIUM 100 MG CAPSULE PO SCH ×3 (08:23→17:00)
[2019-07-02] MEDS: oxyCODONE HCL SR 10MG TAB.SR.12H PO SCH ×2 (08:24→20:33)
[2019-07-02] MEDS: MULTIVIT W/MINERALS 1 TAB TABLET PO SCH (08:24)
[2019-07-02] MEDS: ASPIRIN 81 MG TAB.CHEW PO SCH (08:24)
[2019-07-02] MEDS: PANTOPRAZOLE 40 MG TABLET.DR PO SCH (08:25)
[2019-07-02] MEDS: TOFACITINIB CITRATE 5 MG PO SCH ×2 (08:35→17:00)
[2019-07-02] MEDS: FUROSEMIDE 40 MG/4 ML VIAL IV SCH (08:43)
[2019-07-02] MEDS ORDERED: METHOTREXATE SODIUM (2.5MG) 2.5 MG TABLET PO SCH (09:00)
[2019-07-02 09:30] VITALS: BP 125/65
[2019-07-02] MEDS: HYDROMORPHONE INJ 2 MG/ML DISP.SYRIN IV PRN ×4 (09:31→23:43)
--- NOTE | 2019-07-02 09:31 | NUR ---
RN NOTES ADMINISTERED DILAUDID 1 MG /ML IV PUSH FOR GENERALIZED PAIN 04/11 PER PATIENT REQUEST, V/S TAKEN BP 125/ 65, P-66, ENCOURAGED TO INCREASE FLUID INTAKE. CALL LIGHT WITHIN TO REACH. CONTINUED MONITORING.
[2019-07-02 13:31] VITALS: BP 102/65
--- NOTE | 2019-07-02 13:37 | NUR ---
RN NOTES ADMINISTERED DILAUDID 1 MG /ML FOR BLE PAIN 04/11 PER PATIENT REQUEST, V/S TAKEN BP-102/65, P-66. ENCOURAGED TO INCREASE FLUID INTAKE. CALL LIGHT WITHIN TO REACH. CONTINUED MONITORING.
--- NOTE | 2019-07-02 15:28 | NUR ---
RN NOTES PATIENT RESTING IN THE BED , MEDICATION WERE ADMINISTERED FOR PAIN EFFECTIVE, CONTINUED MONITORING.
[2019-07-02 16:00] VITALS: BP_SYST 122; BP_SYST 96; BP_DIAS 54; BP_DIAS 72
--- NOTE | 2019-07-02 18:22 | NUR ---
RN NOTES ADMINISTERED DILAUDID 1 MG/ML IV PUSH FOR GENERALIZED PAIN 9 10 PER PATIENT REQUEST, V/S TAKEN BP 100/66, P-86, INFUSING VANCOMYCIN AT LEFT SHOULDER 250 ML/HR INTACT. V/S STABLE. PATIENT TURN AND REPOSTION SELF IN THE BED. F/C DARNING LIGHT YELLOW OUTPUT. SAFETY PRECAUTION MAINTAINED ALL THE TIME. ENDORSED ONCOMING NURSE FOLLOW PLAN OF CARE.
--- NOTE | 2019-07-02 19:35 | NUR ---
MS RN OPENING NOTES RECEIVED PATIENT FROM MORNING SHIFT, ALERT AND ORIENTED X 4. VERBALLY RESPONSIVE AND ABLE TO FOLLOW DIRECTIONS. BREATHING REGULAR AND UNLABORED ON ROOM AIR. LEFT SHOULDER IV LINE INTACT AND PATENT, INFUSING WELL WITH NO BLEEDING OR S/S OF INFILTRATION/INFECTION NOTED. COMPLAINED OF 3/10 PAIN ON BILATERAL LEGS. NON-PHARMACOLOGICAL INTERVENTIONS PROVIDED. BED LOW AND LOCKED ON SEMI FOWLERS POSITION. CALL LIGHT AND OTHER BELONGINGS IN REACH. WILL CONTINUE TO MONITOR.
[2019-07-02 20:00] VITALS: BP 106/60
[2019-07-02] MEDS: clonazePAM 0.5 MG TABLET PO SCH (21:27)
[2019-07-02] MEDS: LamoTRIgine 25 MG TABLET PO SCH (21:27)
[2019-07-02] MEDS: MIRTAZAPINE 15 MG TABLET PO SCH (21:27)
[2019-07-02] MEDS: ZOLPIDEM TARTRATE 10 MG TABLET PO PRN (21:52)
--- NOTE | 2019-07-02 21:55 | NUR ---
MS RN NOTES BS 88mg/dl, NO INSULIN COVERAGE NEEDED. COMPLAINED OF DIFFICULTY STAYING ASLEEP, AMBIEN 10MG GIVEN BY MOUTH. NON-PHARMACOLOGICAL INTERVENTIONS PROVIDED. WILL CONTINUE TO MONITOR.
[2019-07-02 22:00] VITALS: BP 106/60
[2019-07-03] MEDS: HYDROMORPHONE INJ 2 MG/ML DISP.SYRIN IV PRN ×5 (00:10→14:50)
--- NOTE | 2019-07-03 00:10 | NUR ---
MS RN NOTES TO GIVE DILAUDID 1MG VIA IV PUSH WHEN RN FOUND CURRENT IV LINE LEAKING AND NOT PATENT. WILL REINSERT NEW IV LINE BEFORE DILAUDID ADMINISTRATION.
--- NOTE | 2019-07-03 00:50 | NUR ---
MS RN NOTES IV LINE REINSERTED ON RIGHT ELBOW WITH GOOD BLOOD BACK FLOW, FLUSHES WELL. DILAUDID 1MG GIVEN IV PUSH FOR 8/10 BILATERAL LEG PAIN. NON PHARMACOLOGICAL INTERVENTIONS DONE. WILL CONTINUE TO MONITOR.
[2019-07-03] MEDS ORDERED: VANCOMYCIN 0.75 GM in IV D5W 250 ML IV SCH (05:00)
[2019-07-03] MEDS: BLOOD SUGAR DIAGNOSTIC 1 EACH STRIP VI SCH ×2 (06:30→11:31)
--- NOTE | 2019-07-03 06:35 | NUR ---
MS RN NOTES BS 109mg/dl, NO INSULIN COVERAGE NEEDED. COMPLAINED OF 8/10 BILATERAL LEG PAIN. DILAUDID 1MG GIVEN VIA IV PUSH. NON-PHARMACOLOGICAL INTERVENTIONS PROVIDED. VITAL SIGN WNL. WILL CONTINUE TO MONITOR.
--- NOTE | 2019-07-03 06:45 | NUR ---
MS MORALES OPENING NOTES PATIENT IN BED ALERT AND ORIENTED X 4. VERBALLY RESPONSIVE AND ABLE TO FOLLOW DIRECTIONS. BREATHING REGULAR AND UNLABORED ON ROOM AIR. RIGHT FOREARM G22 IV LINE INTACT AND PATENT, INFUSING WELL WITH NO BLEEDING OR S/S OF INFILTRATION/INFECTION NOTED. COMPLAINED OF 8/10 PAIN ON BILATERAL LEGS. NON-PHARMACOLOGICAL INTERVENTIONS PROVIDED. FELICIANO CATH INTACT AND PATENT DRAINING CLEAR YELLOW URINE WITH 1050cc OUTPUT. WOUND TREATMENTS DONE. BED LOW AND LOCKED ON SEMI FOWLERS POSITION. CALL LIGHT AND OTHER BELONGINGS IN REACH. WILL ENDORSE TO MORNING SHIFT FOR JACOBO. Addendum: 07/03/19 at 0652 by REMI MORAN RN MS MORALES CLOSING NOTES
[2019-07-03 07:00] LABS: CALCIUM, SERUM 8.2 mg/dL (8.5-10.1); CREATININE 0.7 mg/dL (0.6-1.3); POTASSIUM 3.4 mmol/L (3.5-5.1)
--- NOTE | 2019-07-03 07:33 | NUR ---
MS RN OPENING NOTES RECEIVED PATIENT IN BED ALERT AND ORIENTED X 4. NO SIGNS OF DISTRESS NOTED AT THIS TIME. IV ACCESS ON RIGHT FOREARM #22. INTACT AND PATEN. FELICIANO CATH INTACT AND PATENT DRAINING CLEAR YELLOW URINE. SAFETY MEASURES IN PLACE, BED LOW AND LOCKED ON SEMI FOWLERS POSITION. CALL LIGHT AND OTHER BELONGINGS WITHIN REACH. WILL CONTINUE TO MONITOR.
[2019-07-03 08:00] VITALS: BP 110/58
[2019-07-03] MEDS: TOFACITINIB CITRATE 5 MG PO SCH (08:27)
[2019-07-03] MEDS: FUROSEMIDE 40 MG/4 ML VIAL IV SCH (08:28)
[2019-07-03] MEDS: oxyCODONE HCL SR 10MG TAB.SR.12H PO SCH (08:28)
[2019-07-03] MEDS: PANTOPRAZOLE 40 MG TABLET.DR PO SCH (08:28)
[2019-07-03] MEDS: MULTIVIT W/MINERALS 1 TAB TABLET PO SCH (08:28)
[2019-07-03] MEDS: ESCITALOPRAM OXALATE (10 MG) 10 MG TABLET PO SCH (08:28)
[2019-07-03] MEDS: DOCUSATE SODIUM 100 MG CAPSULE PO SCH (08:29)
[2019-07-03] MEDS: ASPIRIN 81 MG TAB.CHEW PO SCH (08:29)
[2019-07-03] MEDS ORDERED: POTASSIUM CHLORIDE 20 MEQ TAB.PRT.SR PO ONE (08:30)
[2019-07-03] MEDS: FOLIC ACID 1 MG TABLET PO SCH (08:31)
[2019-07-03] MEDS ORDERED: FURO-145 PO (12:22)
[2019-07-03] MEDS ORDERED: CEPH-570 PO (12:22)
[2019-07-03 16:00] VITALS: BP 96/54
--- NOTE | 2019-07-03 16:35 | NUR ---
RN NOTES REMOVED FELICIANO CATHETER USING ASEPTIC TECHNIQUE @16:00, PATIENT VOIDED AROUND 16:30. NO COMPLAIN OF PAIN OR DISCOMFORT DURING URINATION. WILL CONTINUE TO MONITOR.
--- NOTE | 2019-07-03 17:10 | NUR ---
RN DISCHARGED NOTES PATIENT DISCHARGED IN STABLE CONDITION. A/O X4. ABLE TO MAKE NEEDS KNOWN. V/S TAKEN, STABLE AND RECORDED. PATIENT'S IV ACCESS REMOVED AND APPLIED PRESSURE DRESSING. PHOTOS OF SKIN ISSUES WERE TAKEN AND FILED ON CHART. NAME ARM BAND REMOVED. ALL BELONGINGS CHECKED AND SIGNED. HEALTH TEACHINGS/DISCHARGE INSTRUCTIONS GIVEN AND VERBALIZED UNDERSTANDING. PATIENT LEFT UNIT AMBULATORY ASSISTED BY HOSPITAL STAFF, PICKED UP BY TAXI. NO SIGNS OF DISTRESS NOTED. CHARGE NURSE AWARE OF DISCHARGED.
== END 2019-07-03 17:10 | disposition home or self-care (01) | DRG 603 ==
LOC: ER 13:38 → MED 15:48
PROVIDERS: ADMIT Internal Medicine; ATTEND Internal Medicine
DX: L03.115 Cellulitis of right lower limb (principal); E44.0 Moderate protein-calorie malnutrition; L03.116 Cellulitis of left lower limb; M19.90 Unspecified osteoarthritis, unspecified site; Z96.652 Presence of left artificial knee joint; Z96.643 Presence of artificial hip joint, bilateral; M06.9 Rheumatoid arthritis, unspecified; G89.4 Chronic pain syndrome; F32.9 Major depressive disorder, single episode, unspecified; F41.9 Anxiety disorder, unspecified; Z87.891 Personal history of nicotine dependence; E87.6 Hypokalemia; E83.42 Hypomagnesemia; Z68.30 Body mass index [BMI] 30.0-30.9, adult; E88.09 Other disorders of plasma-protein metabolism, not elsewhere classified; D63.8 Anemia in other chronic diseases classified elsewhere; K59.09 Other constipation; E03.9 Hypothyroidism, unspecified; E87.70 Fluid overload, unspecified; Z66 Do not resuscitate; I10 Essential (primary) hypertension
CPT/HCPCS: 36415; 71045-TC; 80048-TC; 80061-TC; 80076-TC; 80202-TC; 81000-TC; 82436-TC; 82962-TC; 83605-TC; 83735-TC; 83935-TC; 84100-TC; 84133-TC; 84300-TC; 84484-TC; 85025-TC; 85730-TC; 87040-TC; 87081-TC; 87086-TC; 93307-TC; 97116-TC; 97530-TC; 97535-TC; A6253; G0378; J0780; J1170; J1200; J1815; J1940; J2543; J3370; J3475; J7050; J7060; J8610; Q0164

== ENCOUNTER 2020-02-24 15:58 | Emergency (ER) | payer MEDICARE, OTHER ==
[~2020-02-24] VITALS: Ht 160 cm; Wt 61.2 kg
[~2020-02-24 15:58] MED LIST changes: -ALEN70TA6 PO; +ASPI-1169 PO; -BACL10TA PO; +CEPH-570 PO; +DOCU-141 PO; -FENT1PAT6 TD; +FOLI0.8T PO; +FURO-145 PO; +HYDR-4354 PO; -HYDR8TAB18 PO; -LAMO25TA4 PO; -LINA290C PO; -LORA-259 PO; +OMEP20TA5 PO; +OXYC15TA2 PO; +POLY17PO4 PO; -VANCOMYCIN 1 GM in IV NS 0.9% 250 ML IV SCH; +[UNRECOGNIZED DRUG - CODE] PO
[2020-02-24] MEDS ORDERED: diphenhydrAMINE HCL 50 MG/ML VIAL ONE (16:54)
[2020-02-24] MEDS ORDERED: HYDROMORPHONE 1 MG/1 ML DISP.SYRIN ONE ×2 (16:55→18:59)
[2020-02-24] MEDS ORDERED: PROCHLORPERAZINE EDISYLATE 10 MG/2 ML VIAL ONE (16:55)
[2020-02-24] MEDS ORDERED: IV NS 0.9% 1,000 ML BAG IV ONE (17:00)
[2020-02-24] MEDS ORDERED: PROCHLORPERAZINE EDISYLATE 10 MG/2 ML VIAL IVP ONE (17:00)
[2020-02-24] MEDS ORDERED: diphenhydrAMINE HCL 50 MG/ML VIAL IV ONE (17:00)
[2020-02-24] MEDS ORDERED: HYDROMORPHONE 1 MG/1 ML DISP.SYRIN IV ONE (17:00)
[2020-02-24 17:15] LABS: BASOPHILS # (AUTO) 0.1 /CMM (0.0-0.2); BASOPHILS % (AUTO) 1.2 % (0.0-2.0); EOSINOPHILS % (AUTO) 2.2 % (0.0-6.0); HEMATOCRIT 41 % (33-45); HEMOGLOBIN 13.5 g/dL (11.5-14.8); LYMPHOCYTES # (AUTO) 2.1 /CMM (0.8-4.8); LYMPHOCYTES % (AUTO) 27.2 % (20.0-44.0); MEAN CORPUSCULAR HGB CONC 33 g/dl (31.0-36.0); MEAN CORPUSCULAR VOLUME 91 fL (82-100); MONOCYTES # (AUTO) 0.7 /CMM (0.1-1.30); MONOCYTES % (AUTO) 8.4 % (2.0-12.0); NEUTROPHILS # (AUTO) 4.7 /CMM (1.8-8.9); PLATELET COUNT (AUTO) 342 /CMM (150-450); RED BLOOD CELL COUNT(AUTO) 4.44 MIL/uL (4.0-5.2); WHITE BLOOD COUNT (AUTO) 7.8 K/uL (4.3-11.0)
--- NOTE | 2020-02-24 17:21 | NUR ---
[id number], from snf, c/o abd pain x 4 days Hx IBS 9/10 pain scale. PT AAOX4, VSS. RR EVEN & UNLABORED. DENIES CP, SOB, DIZZINESS, N/V/D AT THIS TIME. PT SEEN & EVAL'D BY DR. FOY. MEDICATED ORDERED, PT STIVEN WELL. WILL CONT TO MONITOR.
--- NOTE | 2020-02-24 18:03 | NUR ---
CALLED [facility] [phone] WILL BE READ SHORTLY.
[2020-02-24 18:11] LABS: CALCIUM, SERUM 9.2 mg/dL (8.5-10.1); CARBON DIOXIDE 25 mmol/L (21-32); CHLORIDE 107 mmol/L (98-107); CREATININE 0.7 mg/dL (0.6-1.3); GLUCOSE 90 mg/dL (74-106); POTASSIUM 3.6 mmol/L (3.5-5.1); SODIUM SERUM 141 mmol/L (136-145); UREA NITROGEN, BLOOD 11 mg/dL (7-18)
[2020-02-24 18:25] LABS: ALANINE AMINOTRANSFERASE 14 U/L (12-78); ALBUMIN 3.3 g/dL (3.4-5.0); ALKALINE PHOSPHATASE 147 U/L (46-116); ASPARTATE AMINOTRANSFERASE 15 U/L (15-37); BILIRUBIN,DIRECT 0.1 mg/dL (0.0-0.2); BILIRUBIN,TOTAL 0.4 mg/dL (0.2-1.0); LIPASE 189 U/L (73-393)
[2020-02-24] MEDS ORDERED: HYDROMORPHONE INJ 0.5 MG/0.5 ML SYRINGE IV ONE (19:00)
--- NOTE | 2020-02-24 19:03 | NUR ---
MEDICATED FOR PAIN PER ERMD ORDER, PT STIVEN WELL.
--- NOTE | 2020-02-24 20:13 | NUR ---
[id number] RES#[id number] ETA [id number]
[2020-02-24 21:54] VITALS: BP 103/56
--- NOTE | 2020-02-24 21:54 | NUR ---
Patient discharged to home in stable condition. Written and verbal after care instructions given. Patient verbalizes understanding of instruction. IV removed. Catheter intact and site benign. Pressure and 4x4 applied to site. No bleeding noted.
== END 2020-02-24 21:54 | disposition home or self-care (01) ==
LOC: ER 15:58
DX: S32.018A Other fracture of first lumbar vertebra, initial encounter for closed fracture (principal); S32.058A Other fracture of fifth lumbar vertebra, initial encounter for closed fracture; R10.31 Right lower quadrant pain; R10.32 Left lower quadrant pain; G89.29 Other chronic pain; Z98.890 Other specified postprocedural states; Z85.72 Personal history of non-Hodgkin lymphomas; Z88.5 Allergy status to narcotic agent; Z88.8 Allergy status to other drugs, medicaments and biological substances; Z79.82 Long term (current) use of aspirin; Z79.899 Other long term (current) drug therapy; X58.XXXA Exposure to other specified factors, initial encounter; Y93.89 Activity, other specified; Y92.89 Other specified places as the place of occurrence of the external cause; Y99.8 Other external cause status
CPT/HCPCS: 36415; 74176; 80048; 80076; 83690; 84484; 85025; 85730; 93005; 96374; 96375; 96376; 99285; J0780; J1170 ×2; J1200; J7030

== ENCOUNTER 2020-03-24 12:56 | Emergency (ER) | payer MEDICARE, OTHER ==
[~2020-03-24] VITALS: Ht 160 cm; Wt 61.2 kg
[2020-03-24 13:00] VITALS: BP 120/62
--- NOTE | 2020-03-24 13:32 | NUR ---
SEEN AND EXAMINED BY .
[2020-03-24] MEDS ORDERED: HYDROMORPHONE 1 MG/1 ML DISP.SYRIN ONE (13:37)
[2020-03-24] MEDS ORDERED: HYDROMORPHONE 1 MG/1 ML DISP.SYRIN IM ONE (14:00)
== END 2020-03-24 14:15 ==
LOC: ER 13:01
DX: G89.29 Other chronic pain (principal); M54.5 Low back pain; M81.0 Age-related osteoporosis without current pathological fracture; M06.9 Rheumatoid arthritis, unspecified; Z98.890 Other specified postprocedural states; Z88.5 Allergy status to narcotic agent; Z88.6 Allergy status to analgesic agent; Z88.8 Allergy status to other drugs, medicaments and biological substances; Z79.899 Other long term (current) drug therapy; Z79.82 Long term (current) use of aspirin
CPT/HCPCS: 96372; 99283; J1170

== ENCOUNTER 2020-04-05 13:17 | Outpatient (CLI) | payer MEDICARE, OTHER | END 2020-04-05 23:59 | disposition home or self-care (01) | LOC: MSC 13:17 | PROVIDERS: ATTEND Internal Medicine | DX: S31.809A Unspecified open wound of unspecified buttock, initial encounter (principal); X58.XXXA Exposure to other specified factors, initial encounter; Y93.9 Activity, unspecified; Y92.9 Unspecified place or not applicable; M06.9 Rheumatoid arthritis, unspecified; K52.9 Noninfective gastroenteritis and colitis, unspecified; K55.9 Vascular disorder of intestine, unspecified; G62.9 Polyneuropathy, unspecified; I89.0 Lymphedema, not elsewhere classified; I25.10 Atherosclerotic heart disease of native coronary artery without angina pectoris; M81.0 Age-related osteoporosis without current pathological fracture; C85.90 Non-Hodgkin lymphoma, unspecified, unspecified site; Z79.899 Other long term (current) drug therapy; Z79.891 Long term (current) use of opiate analgesic ==

== ENCOUNTER 2020-04-10 09:00 | Outpatient (CLI) | payer MEDICARE, OTHER | END 2020-04-10 23:59 | disposition home health service (06) | LOC: WOU 09:00 | PROVIDERS: ATTEND Specialist | DX: L89.322 Pressure ulcer of left buttock, stage 2 (principal); L89.151 Pressure ulcer of sacral region, stage 1; M06.09 Rheumatoid arthritis without rheumatoid factor, multiple sites; M48.54XD Collapsed vertebra, not elsewhere classified, thoracic region, subsequent encounter for fracture with routine healing; Z96.643 Presence of artificial hip joint, bilateral; Z96.652 Presence of left artificial knee joint; Z87.891 Personal history of nicotine dependence | CPT/HCPCS: G0463 ==

== ENCOUNTER 2020-04-17 10:45 | Outpatient (CLI) | payer MEDICARE, OTHER ==
[2020-04-17] MEDS ORDERED: Z GUARD REMEDY 2 OZ OINT TP ONE (11:31)
== END 2020-04-17 23:59 | disposition home health service (06) ==
LOC: WOU 10:45
PROVIDERS: ATTEND Specialist
DX: L89.322 Pressure ulcer of left buttock, stage 2 (principal); L89.151 Pressure ulcer of sacral region, stage 1; M06.09 Rheumatoid arthritis without rheumatoid factor, multiple sites; M48.54XD Collapsed vertebra, not elsewhere classified, thoracic region, subsequent encounter for fracture with routine healing; Z96.643 Presence of artificial hip joint, bilateral; Z96.652 Presence of left artificial knee joint; Z79.82 Long term (current) use of aspirin
CPT/HCPCS: G0463

== ENCOUNTER 2020-05-01 10:10 | Outpatient (CLI) | payer MEDICARE, OTHER | END 2020-05-01 23:59 | disposition home health service (06) | LOC: WOU 10:10 | PROVIDERS: ATTEND Specialist | DX: M06.09 Rheumatoid arthritis without rheumatoid factor, multiple sites (principal); M48.54XD Collapsed vertebra, not elsewhere classified, thoracic region, subsequent encounter for fracture with routine healing; X58.XXXD Exposure to other specified factors, subsequent encounter; Z79.82 Long term (current) use of aspirin | CPT/HCPCS: G0463 ==

== ENCOUNTER 2020-05-08 08:45 | Outpatient (CLI) | payer MEDICARE, OTHER | END 2020-05-08 23:59 | disposition home or self-care (01) | LOC: MSC 08:45 | PROVIDERS: ATTEND Internal Medicine | DX: G47.00 Insomnia, unspecified (principal); S31.809D Unspecified open wound of unspecified buttock, subsequent encounter; M06.9 Rheumatoid arthritis, unspecified; K52.9 Noninfective gastroenteritis and colitis, unspecified; G62.9 Polyneuropathy, unspecified; K55.9 Vascular disorder of intestine, unspecified; A49.8 Other bacterial infections of unspecified site; I89.0 Lymphedema, not elsewhere classified; I25.10 Atherosclerotic heart disease of native coronary artery without angina pectoris; E03.9 Hypothyroidism, unspecified; M81.0 Age-related osteoporosis without current pathological fracture; K21.9 Gastro-esophageal reflux disease without esophagitis ==

== ENCOUNTER 2020-05-19 13:31 | Emergency (ER) | payer MEDICARE, OTHER ==
[~2020-05-19] VITALS: Ht 160 cm; Wt 61.2 kg
[2020-05-19] MEDS ORDERED: METOCLOPRAMIDE HCL 10 MG/2 ML VIAL ONE ×2 (13:52→18:05)
[2020-05-19 13:55] LABS: BASOPHILS # (AUTO) 0.1 /CMM (0.0-0.2); BASOPHILS % (AUTO) 0.8 % (0.0-2.0); EOSINOPHILS % (AUTO) 1.8 % (0.0-6.0); HEMATOCRIT 45 % (33-45); HEMOGLOBIN 14.7 g/dL (11.5-14.8); LYMPHOCYTES # (AUTO) 1.8 /CMM (0.8-4.8); LYMPHOCYTES % (AUTO) 23.7 % (20.0-44.0); MEAN CORPUSCULAR HGB CONC 33 g/dl (31.0-36.0); MEAN CORPUSCULAR VOLUME 94 fL (82-100); MONOCYTES # (AUTO) 0.8 /CMM (0.1-1.30); MONOCYTES % (AUTO) 10.3 % (2.0-12.0); NEUTROPHILS # (AUTO) 4.7 /CMM (1.8-8.9); NEUTROPHILS % (AUTO) 63.4 % (43.0-81.0); PLATELET COUNT (AUTO) 230 /CMM (150-450); RED BLOOD CELL COUNT(AUTO) 4.73 MIL/uL (4.0-5.2); WHITE BLOOD COUNT (AUTO) 7.5 K/uL (4.3-11.0)
[2020-05-19] MEDS ORDERED: IV NS 0.9% 1,000 ML BAG IV ONE (14:00)
[2020-05-19] MEDS ORDERED: METOCLOPRAMIDE HCL 10 MG/2 ML VIAL IV ONE ×2 (14:00→18:30)
[2020-05-19 14:01] LABS: CALCIUM, SERUM 9.4 mg/dL (8.5-10.1); CARBON DIOXIDE 26 mmol/L (21-32); CHLORIDE 101 mmol/L (98-107); CREATININE 0.6 mg/dL (0.6-1.3); GLUCOSE 96 mg/dL (74-106); POTASSIUM 3.6 mmol/L (3.5-5.1); SODIUM SERUM 137 mmol/L (136-145); UREA NITROGEN, BLOOD 8 mg/dL (7-18)
[2020-05-19 14:07] LABS: ALANINE AMINOTRANSFERASE 22 U/L (12-78); ALBUMIN 4.2 g/dL (3.4-5.0); ALKALINE PHOSPHATASE 171 U/L (46-116); ASPARTATE AMINOTRANSFERASE 16 U/L (15-37); BILIRUBIN,DIRECT 0.1 mg/dL (0.0-0.2); BILIRUBIN,TOTAL 0.3 mg/dL (0.2-1.0); LIPASE 169 U/L (73-393)
--- NOTE | 2020-05-19 14:43 | NUR ---
RUIZ FROM HOME TO ER BED 6. AAOX4. NOT IN RESP DISTRESS. BROUGHT IN FOR NAUSEA, VOMMITING, DIARRHEA, ABDOMINAL PAIN AND BACK PAIN X 3 DAYS. MD WAS AT THE BEDSIDE FOR EVAL. ORDERS RECEIVED NOTED AND CARRIED OUT. IV LINE ESTABLSIHED ON R UPPER ARM 20G. BLOOD DRAWN.
[2020-05-19] MEDS ORDERED: HYDROMORPHONE 1 MG/1 ML DISP.SYRIN ONE ×2 (14:48→18:00)
[2020-05-19] MEDS ORDERED: BISA10SU11 RC (14:57)
[2020-05-19] MEDS ORDERED: LEVO75TA7 PO (14:57)
[2020-05-19] MEDS ORDERED: ACET-868 PO (14:57)
[2020-05-19] MEDS ORDERED: OXYC10TA59 PO (14:57)
[2020-05-19] MEDS ORDERED: MAGN400O6 PO (14:57)
[2020-05-19] MEDS ORDERED: ENOX40DI SQ (14:57)
[2020-05-19] MEDS ORDERED: MULT-594 PO (14:57)
[2020-05-19] MEDS ORDERED: HYDR4TAB57 PO (14:57)
[2020-05-19] MEDS ORDERED: NA P133E RC (14:57)
[2020-05-19] MEDS ORDERED: HYDROMORPHONE 1 MG/1 ML DISP.SYRIN IV ONE ×2 (15:00→18:00)
[2020-05-19] MEDS ORDERED: IOHEXOL-300 100 ML VIAL IV ONE ×2 (15:03→15:48)
[2020-05-19] MEDS ORDERED: CT SWABBABLE VALVE TRANS SET 1 EA INFUS.SET MC ONE (15:04)
[2020-05-19] MEDS ORDERED: IV NS 0.9% 250 ML IV ONE (15:04)
--- NOTE | 2020-05-19 15:45 | NUR ---
PT IS BACK TO CT
--- NOTE | 2020-05-19 16:47 | NUR ---
urine sent to lab
[2020-05-19 17:15] LABS: APPEARANCE,URINE CLEAR (CLEAR); BILIRUBIN,URINE NEGATIVE (NEGATIVE); BLOOD, URINE TRACE-INTA Ery/uL (NEGATIVE); COLOR,URINE YELLOW (YELLOW); KETONES,URINE NEGATIVE (NEGATIVE); LEUKOCYTE ESTERASE ,URINE NEGATIVE (NEGATIVE); NITRITE, URINE POSITIVE (NEGATIVE); PH,URINE 7.5 (5.0-8.0); PROTEIN,URINE NEGATIVE (NEGATIVE); UGLUCOSE NEGATIVE (NEGATIVE); UROBILINOGEN,URINE 0.2 EU/dL (0.2)
[2020-05-19] MEDS ORDERED: CEFTRIAXONE 1 G in IV D5W 50 ML IV SCH (17:30)
[2020-05-19 17:35] LABS: WBC,URINE 0-2 /HPF (0-3)
[2020-05-19 17:36] LABS: BACTERIA,URINE RARE /HPF (None Seen); SQUAMOUS EPITHELIAL CELL,UR 0-2 /HPF (None Seen)
[2020-05-19] MEDS ORDERED: CEFTRIAXONE 1GM BAG (ER ONLY) 50 ML IV ONE (17:42)
[2020-05-19 18:32] VITALS: BP 113/56
== END 2020-05-19 18:32 | disposition home or self-care (01) ==
LOC: ER 13:35
DX: N39.0 Urinary tract infection, site not specified (principal); R11.2 Nausea with vomiting, unspecified; Z20.828 Contact with and (suspected) exposure to other viral communicable diseases; Z88.5 Allergy status to narcotic agent; Z88.8 Allergy status to other drugs, medicaments and biological substances; Z85.72 Personal history of non-Hodgkin lymphomas; Z92.21 Personal history of antineoplastic chemotherapy; M06.9 Rheumatoid arthritis, unspecified; K58.9 Irritable bowel syndrome, unspecified; M81.0 Age-related osteoporosis without current pathological fracture; R94.31 Abnormal electrocardiogram [ECG] [EKG]
CPT/HCPCS: 36415; 71045; 80048; 80076; 81001; 83690; 84484; 85025; 87077; 87081; 87086; 87186; 87426; 93005; 96361; 96365; 96375; 96376; 99285; J0696; J1170 ×2; J2765 ×2; J7030; J7050; Q9967; 74178; 81000-TC; C9803; J7060

== ENCOUNTER 2020-06-05 11:16 | Outpatient (CLI) | payer MEDICARE, OTHER ==
[~2020-06-05 11:16] MED LIST changes: +ACET-868 PO; -ASPI-1169 PO; +BISA10SU11 RC; -CEPH-570 PO; +ENOX40DI SQ; -FURO-145 PO; -HYDR-4354 PO; +HYDR4TAB57 PO; +LEVO75TA7 PO; +MAGN400O6 PO; +MULT-594 PO; +NA P133E RC; +OXYC10TA59 PO; -PROC10TA13 PO; -[UNRECOGNIZED DRUG - CODE] PO
== END 2020-06-05 23:59 | disposition home or self-care (01) ==
LOC: MSC 11:16
PROVIDERS: ATTEND Internal Medicine
DX: F41.9 Anxiety disorder, unspecified (principal); G47.00 Insomnia, unspecified; M06.9 Rheumatoid arthritis, unspecified; K52.9 Noninfective gastroenteritis and colitis, unspecified; G62.9 Polyneuropathy, unspecified; I89.0 Lymphedema, not elsewhere classified; K55.9 Vascular disorder of intestine, unspecified; A49.8 Other bacterial infections of unspecified site; I25.10 Atherosclerotic heart disease of native coronary artery without angina pectoris; E03.9 Hypothyroidism, unspecified; M81.0 Age-related osteoporosis without current pathological fracture; R26.89 Other abnormalities of gait and mobility; C85.90 Non-Hodgkin lymphoma, unspecified, unspecified site

== ENCOUNTER 2020-08-30 12:53 | Emergency (ER) | payer MEDICARE, OTHER ==
[~2020-08-30] VITALS: Ht 162.6 cm; Wt 53.5 kg
[2020-08-30] MEDS ORDERED: IV NS 0.9% 1,000 ML BAG IV ONE (14:00)
--- NOTE | 2020-08-30 14:00 | NUR ---
DR. FOY AT FOR [facility]UL[facility].
[2020-08-30] MEDS ORDERED: METOCLOPRAMIDE HCL 10 MG/2 ML VIAL ONE (14:07)
[2020-08-30] MEDS ORDERED: METOCLOPRAMIDE HCL 10 MG/2 ML VIAL IV ONE (14:30)
--- NOTE | 2020-08-30 14:32 | NUR ---
bib PA frm [facility] c/o lower abdominal pain w/ n/v/d negative covid test 2 days ago. PT AAOX4, VSS. RR EVEN & UNLABORED. MEDICATED PER ERMD ORDER, PT STIVEN WELL. WILL CONT TO MONITOR.
[2020-08-30 14:46] LABS: CALCIUM, SERUM 9.3 mg/dL (8.5-10.1); CREATININE 0.6 mg/dL (0.6-1.3)
--- NOTE | 2020-08-30 14:49 | NUR ---
PT BACK FROM CT
[2020-08-30 14:58] LABS: ALBUMIN 3.7 g/dL (3.4-5.0); BILIRUBIN,DIRECT 0.1 mg/dL (0.0-0.2); BILIRUBIN,TOTAL 0.5 mg/dL (0.2-1.0); TOTAL PROTEIN, SERUM 7.3 g/dL (6.4-8.2)
[2020-08-30 15:47] LABS: BASOPHILS # (AUTO) 0.1 /CMM (0.0-0.2); BASOPHILS % (AUTO) 0.7 % (0.0-2.0); EOSINOPHILS % (AUTO) 1.6 % (0.0-6.0); HEMATOCRIT 44 % (33-45); HEMOGLOBIN 14.4 g/dL (11.5-14.8); LYMPHOCYTES # (AUTO) 1.8 /CMM (0.8-4.8); LYMPHOCYTES % (AUTO) 20.6 % (20.0-44.0); MEAN CORPUSCULAR HGB CONC 33 g/dl (31.0-36.0); MEAN CORPUSCULAR VOLUME 95 fL (82-100); MONOCYTES # (AUTO) 0.8 /CMM (0.1-1.30); MONOCYTES % (AUTO) 8.9 % (2.0-12.0); NEUTROPHILS # (AUTO) 5.9 /CMM (1.8-8.9); NEUTROPHILS % (AUTO) 68.2 % (43.0-81.0); PLATELET COUNT (AUTO) 429 /CMM (150-450); RED BLOOD CELL COUNT(AUTO) 4.59 MIL/uL (4.0-5.2); WHITE BLOOD COUNT (AUTO) 8.6 K/uL (4.3-11.0)
[2020-08-30] MEDS ORDERED: PROCHLORPERAZINE EDISYLATE 10 MG/2 ML VIAL ONE (16:30)
[2020-08-30] MEDS ORDERED: MORPHINE SULFATE INJ 2 MG/ML DISP.SYRIN ONE (16:30)
[2020-08-30] MEDS ORDERED: diphenhydrAMINE HCL 50 MG/ML VIAL ONE (16:30)
[2020-08-30] MEDS ORDERED: MORPHINE SULFATE INJ 2 MG/ML DISP.SYRIN IV ONE (16:30)
[2020-08-30] MEDS ORDERED: PROCHLORPERAZINE EDISYLATE 10 MG/2 ML VIAL IVP ONE (16:30)
[2020-08-30] MEDS ORDERED: diphenhydrAMINE HCL 50 MG/ML VIAL IV ONE (16:30)
[2020-08-30] MEDS ORDERED: MORPHINE SULFATE INJ 4 MG/ML DISP.SYRIN ONE (16:42)
--- NOTE | 2020-08-30 16:59 | NUR ---
MEDICATED FOR PAIN PER ERMD ORDER, PT STIVEN WELL.
[2020-08-30] MEDS ORDERED: MORPHINE SULFATE INJ 2 MG/ML DISP.SYRIN IM ONE ×2 (17:00)
[2020-08-30] MEDS ORDERED: METO-295 PO (17:08)
[2020-08-30 17:49] VITALS: BP 118/75
== END 2020-08-30 17:49 | disposition home or self-care (01) ==
LOC: ER 12:59
DX: R10.30 Lower abdominal pain, unspecified (principal); R11.10 Vomiting, unspecified; R19.7 Diarrhea, unspecified; R94.31 Abnormal electrocardiogram [ECG] [EKG]; Z76.5 Malingerer [conscious simulation]; M06.9 Rheumatoid arthritis, unspecified; M81.0 Age-related osteoporosis without current pathological fracture; Z98.890 Other specified postprocedural states; K58.9 Irritable bowel syndrome, unspecified; Z88.5 Allergy status to narcotic agent; Z88.6 Allergy status to analgesic agent; Z88.8 Allergy status to other drugs, medicaments and biological substances; Z79.899 Other long term (current) drug therapy
CPT/HCPCS: 74176; 80048; 80076; 83690; 84484; 85025; 93005; 96361; 96372; 96374; 99285; J2270 ×2; J2765; J7030; 36415; J0780; J1200

== ENCOUNTER → 2020-09-18 | Outpatient (CLI) | payer MEDICARE, OTHER ==
[~2020-09-18] MED LIST changes: -FOLI0.8T PO; +FOLI0.8T3 PO; +METO-295 PO
== END | disposition home or self-care (01) ==
LOC: MSC 04:30
PROVIDERS: ATTEND Internal Medicine
DX: I89.0 Lymphedema, not elsewhere classified (principal); S80.829D Blister (nonthermal), unspecified lower leg, subsequent encounter; K52.9 Noninfective gastroenteritis and colitis, unspecified; Z87.19 Personal history of other diseases of the digestive system; A49.8 Other bacterial infections of unspecified site; F41.9 Anxiety disorder, unspecified; G47.00 Insomnia, unspecified; M06.9 Rheumatoid arthritis, unspecified; G62.9 Polyneuropathy, unspecified; I25.10 Atherosclerotic heart disease of native coronary artery without angina pectoris; E03.9 Hypothyroidism, unspecified; M81.0 Age-related osteoporosis without current pathological fracture; R26.89 Other abnormalities of gait and mobility; Z86.718 Personal history of other venous thrombosis and embolism; C85.90 Non-Hodgkin lymphoma, unspecified, unspecified site; K21.9 Gastro-esophageal reflux disease without esophagitis; Z79.82 Long term (current) use of aspirin; Z79.899 Other long term (current) drug therapy

== ENCOUNTER → 2020-12-13 | Outpatient (CLI) | payer MEDICARE, OTHER | END | disposition home or self-care (01) | LOC: MSC 14:30 | PROVIDERS: ATTEND Internal Medicine | DX: I97.89 Other postprocedural complications and disorders of the circulatory system, not elsewhere classified (principal); I89.0 Lymphedema, not elsewhere classified; S80.829D Blister (nonthermal), unspecified lower leg, subsequent encounter; K52.9 Noninfective gastroenteritis and colitis, unspecified; F41.9 Anxiety disorder, unspecified; G47.00 Insomnia, unspecified; M06.9 Rheumatoid arthritis, unspecified; G62.9 Polyneuropathy, unspecified; K55.9 Vascular disorder of intestine, unspecified; I25.10 Atherosclerotic heart disease of native coronary artery without angina pectoris; E03.9 Hypothyroidism, unspecified; M81.0 Age-related osteoporosis without current pathological fracture; R26.89 Other abnormalities of gait and mobility; Z86.718 Personal history of other venous thrombosis and embolism; C85.90 Non-Hodgkin lymphoma, unspecified, unspecified site ==

== ENCOUNTER 2020-12-24 12:30 | Outpatient (CLI) | payer MEDICARE, OTHER | END 2020-12-24 23:59 | disposition home or self-care (01) | LOC: MSC 12:30 | PROVIDERS: ATTEND Internal Medicine | DX: G47.00 Insomnia, unspecified (principal); F32.9 Major depressive disorder, single episode, unspecified; I89.0 Lymphedema, not elsewhere classified; K52.9 Noninfective gastroenteritis and colitis, unspecified; F41.9 Anxiety disorder, unspecified; M06.9 Rheumatoid arthritis, unspecified; G62.9 Polyneuropathy, unspecified; A49.8 Other bacterial infections of unspecified site; I25.10 Atherosclerotic heart disease of native coronary artery without angina pectoris; E03.9 Hypothyroidism, unspecified; M81.0 Age-related osteoporosis without current pathological fracture; Z86.718 Personal history of other venous thrombosis and embolism; R26.89 Other abnormalities of gait and mobility; Z79.891 Long term (current) use of opiate analgesic; Z79.2 Long term (current) use of antibiotics ==

== ENCOUNTER → 2021-01-27 | Outpatient (CLI) | payer MEDICARE, OTHER ==
[~2021-01-27] MED LIST changes: +MIRT-90 PO; -MIRT15TA7 PO
== END | disposition home or self-care (01) ==
LOC: MSC 16:00
PROVIDERS: ATTEND Internal Medicine
DX: M54.9 Dorsalgia, unspecified (principal); M62.830 Muscle spasm of back; W19.XXXA Unspecified fall, initial encounter; I89.0 Lymphedema, not elsewhere classified; S80.829D Blister (nonthermal), unspecified lower leg, subsequent encounter; K25.9 Gastric ulcer, unspecified as acute or chronic, without hemorrhage or perforation; F41.9 Anxiety disorder, unspecified; M06.9 Rheumatoid arthritis, unspecified; G62.9 Polyneuropathy, unspecified; K55.9 Vascular disorder of intestine, unspecified; B96.89 Other specified bacterial agents as the cause of diseases classified elsewhere; I25.10 Atherosclerotic heart disease of native coronary artery without angina pectoris; E03.9 Hypothyroidism, unspecified; M81.0 Age-related osteoporosis without current pathological fracture; R26.89 Other abnormalities of gait and mobility; Z86.718 Personal history of other venous thrombosis and embolism; C85.90 Non-Hodgkin lymphoma, unspecified, unspecified site; K21.9 Gastro-esophageal reflux disease without esophagitis; Z79.2 Long term (current) use of antibiotics

== ENCOUNTER → 2021-04-09 | Outpatient (CLI) | payer MEDICARE, OTHER | END | disposition home or self-care (01) | LOC: MSC 14:00 | PROVIDERS: ATTEND Internal Medicine | DX: L03.116 Cellulitis of left lower limb (principal); L03.115 Cellulitis of right lower limb; G47.00 Insomnia, unspecified; M54.9 Dorsalgia, unspecified; I89.0 Lymphedema, not elsewhere classified; S80.829A Blister (nonthermal), unspecified lower leg, initial encounter; K52.9 Noninfective gastroenteritis and colitis, unspecified; F41.9 Anxiety disorder, unspecified; M06.9 Rheumatoid arthritis, unspecified; G62.9 Polyneuropathy, unspecified; K55.9 Vascular disorder of intestine, unspecified; B96.89 Other specified bacterial agents as the cause of diseases classified elsewhere; I25.10 Atherosclerotic heart disease of native coronary artery without angina pectoris; E03.9 Hypothyroidism, unspecified; M81.0 Age-related osteoporosis without current pathological fracture; R26.89 Other abnormalities of gait and mobility; Z86.718 Personal history of other venous thrombosis and embolism; C85.90 Non-Hodgkin lymphoma, unspecified, unspecified site; K21.9 Gastro-esophageal reflux disease without esophagitis; Z79.891 Long term (current) use of opiate analgesic; Z79.2 Long term (current) use of antibiotics ==

== ENCOUNTER → 2021-04-15 | Outpatient (CLI) | payer MEDICARE, OTHER | END | disposition home or self-care (01) | LOC: MSC 14:30 | PROVIDERS: ATTEND Internal Medicine | DX: G47.00 Insomnia, unspecified (principal); R60.0 Localized edema; L03.119 Cellulitis of unspecified part of limb; M54.9 Dorsalgia, unspecified; Z91.81 History of falling; I89.0 Lymphedema, not elsewhere classified; S80.829D Blister (nonthermal), unspecified lower leg, subsequent encounter; K52.9 Noninfective gastroenteritis and colitis, unspecified; F41.9 Anxiety disorder, unspecified; M06.9 Rheumatoid arthritis, unspecified; G62.9 Polyneuropathy, unspecified; K55.9 Vascular disorder of intestine, unspecified; A49.8 Other bacterial infections of unspecified site; I25.10 Atherosclerotic heart disease of native coronary artery without angina pectoris; E03.9 Hypothyroidism, unspecified; M81.0 Age-related osteoporosis without current pathological fracture; R26.89 Other abnormalities of gait and mobility; Z86.718 Personal history of other venous thrombosis and embolism; C85.90 Non-Hodgkin lymphoma, unspecified, unspecified site; K21.9 Gastro-esophageal reflux disease without esophagitis; Z79.891 Long term (current) use of opiate analgesic; Z79.2 Long term (current) use of antibiotics ==

== ENCOUNTER 2021-05-08 11:45 | Outpatient (CLI) | payer MEDICARE, OTHER | END 2021-05-08 23:59 | disposition home or self-care (01) | LOC: MSC 11:45 | PROVIDERS: ATTEND Internal Medicine | DX: M25.561 Pain in right knee (principal); M25.461 Effusion, right knee; R26.2 Difficulty in walking, not elsewhere classified; G47.00 Insomnia, unspecified; L03.116 Cellulitis of left lower limb; L03.115 Cellulitis of right lower limb; Z91.81 History of falling; I89.0 Lymphedema, not elsewhere classified; S80.829D Blister (nonthermal), unspecified lower leg, subsequent encounter; K25.9 Gastric ulcer, unspecified as acute or chronic, without hemorrhage or perforation; F41.9 Anxiety disorder, unspecified; M06.9 Rheumatoid arthritis, unspecified; G62.9 Polyneuropathy, unspecified; K55.9 Vascular disorder of intestine, unspecified; A49.8 Other bacterial infections of unspecified site; I25.10 Atherosclerotic heart disease of native coronary artery without angina pectoris; E03.9 Hypothyroidism, unspecified; M81.0 Age-related osteoporosis without current pathological fracture; Z86.718 Personal history of other venous thrombosis and embolism; C85.90 Non-Hodgkin lymphoma, unspecified, unspecified site; K21.9 Gastro-esophageal reflux disease without esophagitis ==

== ENCOUNTER → 2021-05-09 | Outpatient (CLI) | payer MEDICARE, OTHER ==
[~2021-05-09] MED LIST changes: +POTASSIUM CHLORIDE 20 MEQ TAB.PRT.SR PO ONE
== END | disposition home or self-care (01) ==
LOC: MSC 15:00
PROVIDERS: ATTEND Internal Medicine
DX: M25.461 Effusion, right knee (principal); L53.9 Erythematous condition, unspecified; G47.00 Insomnia, unspecified; L03.116 Cellulitis of left lower limb; L03.115 Cellulitis of right lower limb; Z79.2 Long term (current) use of antibiotics; M54.9 Dorsalgia, unspecified; Z91.81 History of falling; I89.0 Lymphedema, not elsewhere classified; K52.9 Noninfective gastroenteritis and colitis, unspecified; F41.9 Anxiety disorder, unspecified; M06.9 Rheumatoid arthritis, unspecified; K55.9 Vascular disorder of intestine, unspecified; A49.8 Other bacterial infections of unspecified site; I25.10 Atherosclerotic heart disease of native coronary artery without angina pectoris; E03.9 Hypothyroidism, unspecified; M81.0 Age-related osteoporosis without current pathological fracture; Z86.718 Personal history of other venous thrombosis and embolism; C85.90 Non-Hodgkin lymphoma, unspecified, unspecified site; K21.9 Gastro-esophageal reflux disease without esophagitis; Z79.891 Long term (current) use of opiate analgesic; R26.89 Other abnormalities of gait and mobility

== ENCOUNTER → 2021-05-12 | Outpatient (CLI) | payer MEDICARE, OTHER ==
[~2021-05-12] MED LIST changes: -POTASSIUM CHLORIDE 20 MEQ TAB.PRT.SR PO ONE
== END | disposition home or self-care (01) ==
LOC: MSC 16:10
PROVIDERS: ATTEND Internal Medicine
DX: R11.2 Nausea with vomiting, unspecified (principal); M25.461 Effusion, right knee; G47.00 Insomnia, unspecified; L03.116 Cellulitis of left lower limb; L03.115 Cellulitis of right lower limb; Z79.2 Long term (current) use of antibiotics; M54.9 Dorsalgia, unspecified; Z91.81 History of falling; I89.0 Lymphedema, not elsewhere classified; K52.9 Noninfective gastroenteritis and colitis, unspecified; F41.9 Anxiety disorder, unspecified; M06.9 Rheumatoid arthritis, unspecified; G62.9 Polyneuropathy, unspecified; K55.9 Vascular disorder of intestine, unspecified; A49.8 Other bacterial infections of unspecified site; I25.10 Atherosclerotic heart disease of native coronary artery without angina pectoris; E03.9 Hypothyroidism, unspecified; M81.0 Age-related osteoporosis without current pathological fracture; R26.89 Other abnormalities of gait and mobility; Z86.718 Personal history of other venous thrombosis and embolism; C85.90 Non-Hodgkin lymphoma, unspecified, unspecified site; K21.9 Gastro-esophageal reflux disease without esophagitis; Z79.891 Long term (current) use of opiate analgesic

== ENCOUNTER 2021-05-13 00:13 | Emergency (ER) | payer MEDICARE, OTHER ==
[~2021-05-13] VITALS: Ht 160 cm; Wt 54.4 kg
--- NOTE | 2021-05-13 00:18 | NUR ---
BIBRA 839 FROM [place] FOR C/O GEN ABD PAIN, N/V/D X 3 DAYS.ALSO W/ C/O SWOLLEN R KNEE X 3 DAYS. PT A/OX4; TOLERATING R/A WELL
--- NOTE | 2021-05-13 00:39 | NUR ---
PT PROVIDED WITH WARM BLANKETS FOR COMFORT.
[2021-05-13] MEDS ORDERED: MORPHINE SULFATE INJ 2 MG/ML DISP.SYRIN ONE ×2 (00:43→00:56)
[2021-05-13] MEDS ORDERED: METOCLOPRAMIDE HCL 10 MG/2 ML VIAL ONE (00:43)
[2021-05-13] MEDS ORDERED: MORPHINE SULFATE INJ 2 MG/ML DISP.SYRIN IM ONE (01:00)
[2021-05-13] MEDS ORDERED: METOCLOPRAMIDE HCL 10 MG/2 ML VIAL IV ONE (01:00)
[2021-05-13] MEDS ORDERED: diphenhydrAMINE HCL 50 MG CAPSULE ONE (01:03)
--- NOTE | 2021-05-13 01:10 | NUR ---
INITIATED IV L HAND #24G S/L. TIRE MAINTENANCE TECHNICIAN AT BEDSIDE DRAWING BLOODWORK
[2021-05-13 01:16] LABS: BASOPHILS # (AUTO) 0.1 K/uL (0.0-0.2); EOSINOPHILS % (AUTO) 1.2 % (0.0-6.0); HEMATOCRIT 38 % (33-45); HEMOGLOBIN 12.2 g/dL (11.5-14.8); LYMPHOCYTES # (AUTO) 1.6 K/uL (0.8-4.8); LYMPHOCYTES % (AUTO) 16.9 % (20.0-44.0); MEAN CORPUSCULAR HGB CONC 33 g/dl (31.0-36.0); MEAN CORPUSCULAR VOLUME 85 fL (82-100); MONOCYTES # (AUTO) 0.9 K/uL (0.1-1.30); MONOCYTES % (AUTO) 8.8 % (2.0-12.0); NEUTROPHILS % (AUTO) 72.1 % (43.0-81.0); PLATELET COUNT (AUTO) 660 K/uL (150-450); RED BLOOD CELL COUNT(AUTO) 4.42 MIL/uL (4.0-5.2); WHITE BLOOD COUNT (AUTO) 9.7 K/uL (4.3-11.0)
--- NOTE | 2021-05-13 01:18 | NUR ---
histologic technician at bedside for pain
--- NOTE | 2021-05-13 01:20 | NUR ---
ADMINISTERED MORPHINE THOUGH PT IS ALLERGIC TO MORHPHINE. PT STATED ITS OKAY TO ADMIN MORPHINE WITH BENADRYL. MARICARMEN FRIEND AWARE. WILL CONTINUE TO MONITOR FOR ALLERGIC REACTION
--- NOTE | 2021-05-13 01:21 | NUR ---
PT TAKEN TO CT VIA [facility]
[2021-05-13 01:26] LABS: CALCIUM, SERUM 9.3 mg/dL (8.5-10.1); CREATININE 0.5 mg/dL (0.6-1.3); POTASSIUM 3.3 mmol/L (3.5-5.1)
[2021-05-13] MEDS ORDERED: diphenhydrAMINE HCL 50 MG CAPSULE PO ONE (01:30)
--- NOTE | 2021-05-13 01:31 | NUR ---
PT RETURNED TO ER ROOM 6
[2021-05-13 01:32] LABS: ALBUMIN 3.6 g/dL (3.4-5.0); BILIRUBIN,DIRECT 0.1 mg/dL (0.0-0.2); BILIRUBIN,TOTAL 0.4 mg/dL (0.2-1.0); TOTAL PROTEIN, SERUM 8.5 g/dL (6.4-8.2)
--- NOTE | 2021-05-13 01:45 | NUR ---
URINE SAMPLE COLLECTED AND SENT TO LAB
--- NOTE | 2021-05-13 01:50 | NUR ---
NO S/SX OF ALLERGIC REACTIONS, DISTRESS, RESPIRATIONS EVEN AND NON LABORED. NO N/V/D/
[2021-05-13 01:57] LABS: BILIRUBIN,URINE Negative (NEGATIVE); COLOR,URINE YELLOW (YELLOW); LEUKOCYTE ESTERASE ,URINE Negative (NEGATIVE); NITRITE, URINE Negative (NEGATIVE); PROTEIN,URINE 100 mg/dl (NEGATIVE); UGLUCOSE Negative (NEGATIVE); UROBILINOGEN,URINE 0.2 EU/dL (0.2)
--- NOTE | 2021-05-13 01:57 | NUR ---
CALLED [facility] FOR TRANSPORTATION BACK HOME. ETA [phone]
[2021-05-13] MEDS ORDERED: POTASSIUM CHLORIDE 20 MEQ TAB.PRT.SR PO ONE (02:00)
--- NOTE | 2021-05-13 02:17 | NUR ---
GAVE REPORT TO FLORI Ambassador FROM THE [facility].
[2021-05-13 02:25] LABS: PH,URINE >8.5 (5.0-8.0)
--- NOTE | 2021-05-13 02:25 | NUR ---
PT A/OX4; Written and verbal after care instructions given. Patient verbalizes understanding of instruction. PT SIGNED D/C FORMS. AWAITING FOR AMBULANCE ARRIVAL
[2021-05-13 02:26] LABS: BACTERIA,URINE Few /HPF (None Seen); RBC,URINE 0-2 /HPF (0-2); SQUAMOUS EPITHELIAL CELL,UR Few /HPF (None Seen); URINE AMORPHOUS PHOSPHATES Many /HPF (None Seen); WBC,URINE 0-2 /HPF (0-3)
--- NOTE | 2021-05-13 03:18 | NUR ---
Patient discharged to home in stable condition. Written and verbal after care instructions given. Patient verbalizes understanding of instruction. Patient Tranfers to outside Facility VIA AMBULANCE [id number]. GAVE REPORT TO EMT. ALL BELONGINGS WITH PATIENT. Physician: DR RIVAS/ CURL[facility] Location: [facility].
[2021-05-13 03:20] VITALS: BP 124/75
== END 2021-05-13 03:20 | disposition home or self-care (01) ==
LOC: ER 00:15
DX: M25.561 Pain in right knee (principal); G89.29 Other chronic pain; I10 Essential (primary) hypertension; F32.9 Major depressive disorder, single episode, unspecified; F41.9 Anxiety disorder, unspecified; Z76.5 Malingerer [conscious simulation]; Z90.710 Acquired absence of both cervix and uterus; Z79.899 Other long term (current) drug therapy; Z88.5 Allergy status to narcotic agent; Z88.6 Allergy status to analgesic agent; Z88.8 Allergy status to other drugs, medicaments and biological substances
CPT/HCPCS: 36415; 71045; 73560; 74176; 80048; 80076; 81001; 83690; 85025; 96372; 96374; 99285; J2270 ×2; J2765; Q0163

== ENCOUNTER 2021-05-15 09:00 | Outpatient (CLI) | payer MEDICARE, OTHER | END 2021-05-15 23:59 | disposition home or self-care (01) | LOC: MSC 09:00 | PROVIDERS: ATTEND Internal Medicine | DX: R19.7 Diarrhea, unspecified (principal); R11.2 Nausea with vomiting, unspecified; M25.461 Effusion, right knee; G47.00 Insomnia, unspecified; L03.116 Cellulitis of left lower limb; L03.115 Cellulitis of right lower limb; Z79.2 Long term (current) use of antibiotics; M54.9 Dorsalgia, unspecified; Z91.81 History of falling; I89.0 Lymphedema, not elsewhere classified; F41.9 Anxiety disorder, unspecified; M06.9 Rheumatoid arthritis, unspecified; G62.9 Polyneuropathy, unspecified; K55.9 Vascular disorder of intestine, unspecified; A49.8 Other bacterial infections of unspecified site; I25.10 Atherosclerotic heart disease of native coronary artery without angina pectoris; E03.9 Hypothyroidism, unspecified; M81.0 Age-related osteoporosis without current pathological fracture; R26.89 Other abnormalities of gait and mobility; Z86.718 Personal history of other venous thrombosis and embolism; C85.90 Non-Hodgkin lymphoma, unspecified, unspecified site; K21.9 Gastro-esophageal reflux disease without esophagitis; Z79.891 Long term (current) use of opiate analgesic ==

== ENCOUNTER → 2021-06-12 | Outpatient (CLI) | payer MEDICARE, OTHER | END | disposition home or self-care (01) | LOC: MSC 11:45 | PROVIDERS: ATTEND Internal Medicine | DX: G47.00 Insomnia, unspecified (principal); R60.0 Localized edema; L03.116 Cellulitis of left lower limb; L03.115 Cellulitis of right lower limb; Z79.2 Long term (current) use of antibiotics; R11.2 Nausea with vomiting, unspecified; M25.461 Effusion, right knee; M54.9 Dorsalgia, unspecified; Z91.81 History of falling; Z79.891 Long term (current) use of opiate analgesic; Z79.1 Long term (current) use of non-steroidal anti-inflammatories (NSAID); I89.0 Lymphedema, not elsewhere classified; K52.9 Noninfective gastroenteritis and colitis, unspecified; F41.9 Anxiety disorder, unspecified; M06.9 Rheumatoid arthritis, unspecified; G62.9 Polyneuropathy, unspecified; K55.9 Vascular disorder of intestine, unspecified; A49.8 Other bacterial infections of unspecified site; I25.10 Atherosclerotic heart disease of native coronary artery without angina pectoris; E03.9 Hypothyroidism, unspecified; M81.0 Age-related osteoporosis without current pathological fracture; R26.89 Other abnormalities of gait and mobility; Z86.718 Personal history of other venous thrombosis and embolism; C85.90 Non-Hodgkin lymphoma, unspecified, unspecified site; K21.9 Gastro-esophageal reflux disease without esophagitis ==

== ENCOUNTER 2021-08-07 11:15 | Outpatient (CLI) | payer MEDICARE, OTHER | END 2021-08-07 23:59 | disposition home or self-care (01) | LOC: MSC 11:15 | PROVIDERS: ATTEND Internal Medicine | DX: K58.9 Irritable bowel syndrome, unspecified (principal); G47.00 Insomnia, unspecified; L03.116 Cellulitis of left lower limb; L03.115 Cellulitis of right lower limb; Z79.2 Long term (current) use of antibiotics; R11.2 Nausea with vomiting, unspecified; M25.461 Effusion, right knee; M54.9 Dorsalgia, unspecified; Z91.81 History of falling; Z79.891 Long term (current) use of opiate analgesic; Z79.1 Long term (current) use of non-steroidal anti-inflammatories (NSAID); I89.0 Lymphedema, not elsewhere classified; F41.9 Anxiety disorder, unspecified; M06.9 Rheumatoid arthritis, unspecified; G62.9 Polyneuropathy, unspecified; K55.9 Vascular disorder of intestine, unspecified; A49.8 Other bacterial infections of unspecified site; I25.10 Atherosclerotic heart disease of native coronary artery without angina pectoris; E03.9 Hypothyroidism, unspecified; M81.0 Age-related osteoporosis without current pathological fracture; R26.89 Other abnormalities of gait and mobility; Z86.718 Personal history of other venous thrombosis and embolism; C85.90 Non-Hodgkin lymphoma, unspecified, unspecified site; K21.9 Gastro-esophageal reflux disease without esophagitis; Z79.899 Other long term (current) drug therapy ==

== ENCOUNTER → 2021-08-12 | Outpatient (CLI) | payer MEDICARE, OTHER | END | disposition home or self-care (01) | LOC: MSC 11:30 | PROVIDERS: ATTEND Internal Medicine | DX: G47.00 Insomnia, unspecified (principal); K58.9 Irritable bowel syndrome, unspecified; L03.116 Cellulitis of left lower limb; L03.115 Cellulitis of right lower limb; Z79.2 Long term (current) use of antibiotics; R11.2 Nausea with vomiting, unspecified; M25.461 Effusion, right knee; M54.9 Dorsalgia, unspecified; Z91.81 History of falling; Z79.891 Long term (current) use of opiate analgesic; Z79.1 Long term (current) use of non-steroidal anti-inflammatories (NSAID); I89.0 Lymphedema, not elsewhere classified; F41.9 Anxiety disorder, unspecified; M06.9 Rheumatoid arthritis, unspecified; G62.9 Polyneuropathy, unspecified; K55.9 Vascular disorder of intestine, unspecified; A49.8 Other bacterial infections of unspecified site; I25.10 Atherosclerotic heart disease of native coronary artery without angina pectoris; E03.9 Hypothyroidism, unspecified; M81.0 Age-related osteoporosis without current pathological fracture; R26.89 Other abnormalities of gait and mobility; Z86.718 Personal history of other venous thrombosis and embolism; C85.90 Non-Hodgkin lymphoma, unspecified, unspecified site; K21.9 Gastro-esophageal reflux disease without esophagitis; Z79.899 Other long term (current) drug therapy ==

== ENCOUNTER 2021-08-20 13:30 | Outpatient (CLI) | payer MEDICARE, OTHER | END 2021-08-20 23:59 | disposition home or self-care (01) | LOC: MSC 13:30 | PROVIDERS: ATTEND Internal Medicine | DX: L03.116 Cellulitis of left lower limb (principal); L03.115 Cellulitis of right lower limb; Z79.2 Long term (current) use of antibiotics; S81.809D Unspecified open wound, unspecified lower leg, subsequent encounter; G47.00 Insomnia, unspecified; M25.461 Effusion, right knee; K52.9 Noninfective gastroenteritis and colitis, unspecified; R11.2 Nausea with vomiting, unspecified; M54.9 Dorsalgia, unspecified; Z91.81 History of falling; Z79.891 Long term (current) use of opiate analgesic; Z79.1 Long term (current) use of non-steroidal anti-inflammatories (NSAID); I89.0 Lymphedema, not elsewhere classified; F41.9 Anxiety disorder, unspecified; M06.9 Rheumatoid arthritis, unspecified; G62.9 Polyneuropathy, unspecified; K55.9 Vascular disorder of intestine, unspecified; A49.8 Other bacterial infections of unspecified site; I25.10 Atherosclerotic heart disease of native coronary artery without angina pectoris; E03.9 Hypothyroidism, unspecified; M81.0 Age-related osteoporosis without current pathological fracture; R26.89 Other abnormalities of gait and mobility; Z86.718 Personal history of other venous thrombosis and embolism; C85.90 Non-Hodgkin lymphoma, unspecified, unspecified site; K21.9 Gastro-esophageal reflux disease without esophagitis; Z79.899 Other long term (current) drug therapy ==

== ENCOUNTER → 2021-08-26 | Outpatient (CLI) | payer MEDICARE, OTHER | END | disposition home or self-care (01) | LOC: MSC 12:00 | PROVIDERS: ATTEND Internal Medicine | DX: L03.116 Cellulitis of left lower limb (principal); L03.115 Cellulitis of right lower limb; Z79.2 Long term (current) use of antibiotics; G47.00 Insomnia, unspecified; E87.1 Hypo-osmolality and hyponatremia; K58.9 Irritable bowel syndrome, unspecified; R11.2 Nausea with vomiting, unspecified; M25.461 Effusion, right knee; M54.9 Dorsalgia, unspecified; Z91.81 History of falling; Z79.891 Long term (current) use of opiate analgesic; Z79.1 Long term (current) use of non-steroidal anti-inflammatories (NSAID); I89.0 Lymphedema, not elsewhere classified; F41.9 Anxiety disorder, unspecified; M06.9 Rheumatoid arthritis, unspecified; G62.9 Polyneuropathy, unspecified; K55.9 Vascular disorder of intestine, unspecified; A49.8 Other bacterial infections of unspecified site; I25.10 Atherosclerotic heart disease of native coronary artery without angina pectoris; E03.9 Hypothyroidism, unspecified; M81.0 Age-related osteoporosis without current pathological fracture; R26.89 Other abnormalities of gait and mobility; Z86.718 Personal history of other venous thrombosis and embolism; C85.90 Non-Hodgkin lymphoma, unspecified, unspecified site; K21.9 Gastro-esophageal reflux disease without esophagitis; Z79.899 Other long term (current) drug therapy ==

== ENCOUNTER 2021-08-29 13:15 | Outpatient (CLI) | payer MEDICARE, OTHER | END 2021-08-29 23:59 | disposition home or self-care (01) | LOC: MSC 13:15 | PROVIDERS: ATTEND Internal Medicine | DX: G47.00 Insomnia, unspecified (principal); L03.116 Cellulitis of left lower limb; Z79.2 Long term (current) use of antibiotics; E87.1 Hypo-osmolality and hyponatremia; K58.9 Irritable bowel syndrome, unspecified; R11.2 Nausea with vomiting, unspecified; M25.461 Effusion, right knee; M54.9 Dorsalgia, unspecified; Z91.81 History of falling; Z79.891 Long term (current) use of opiate analgesic; Z79.1 Long term (current) use of non-steroidal anti-inflammatories (NSAID); I89.0 Lymphedema, not elsewhere classified; S80.829D Blister (nonthermal), unspecified lower leg, subsequent encounter; F41.9 Anxiety disorder, unspecified; M06.9 Rheumatoid arthritis, unspecified; G62.9 Polyneuropathy, unspecified; K55.9 Vascular disorder of intestine, unspecified; A49.8 Other bacterial infections of unspecified site; I25.10 Atherosclerotic heart disease of native coronary artery without angina pectoris; E03.9 Hypothyroidism, unspecified; M81.0 Age-related osteoporosis without current pathological fracture; R26.89 Other abnormalities of gait and mobility; Z86.718 Personal history of other venous thrombosis and embolism; C85.90 Non-Hodgkin lymphoma, unspecified, unspecified site; K21.9 Gastro-esophageal reflux disease without esophagitis; Z79.899 Other long term (current) drug therapy ==

== ENCOUNTER → 2021-09-30 | Outpatient (CLI) | payer MEDICARE, OTHER | END | disposition home or self-care (01) | LOC: MSC 11:00 | PROVIDERS: ATTEND Internal Medicine | DX: M06.9 Rheumatoid arthritis, unspecified (principal); K52.9 Noninfective gastroenteritis and colitis, unspecified; G47.00 Insomnia, unspecified; L03.116 Cellulitis of left lower limb; Z79.2 Long term (current) use of antibiotics; E87.1 Hypo-osmolality and hyponatremia; R11.2 Nausea with vomiting, unspecified; M25.461 Effusion, right knee; M54.9 Dorsalgia, unspecified; Z91.81 History of falling; I89.0 Lymphedema, not elsewhere classified; S80.829D Blister (nonthermal), unspecified lower leg, subsequent encounter; F41.9 Anxiety disorder, unspecified; G62.9 Polyneuropathy, unspecified; K55.9 Vascular disorder of intestine, unspecified; A49.8 Other bacterial infections of unspecified site; I25.10 Atherosclerotic heart disease of native coronary artery without angina pectoris; E03.9 Hypothyroidism, unspecified; M81.0 Age-related osteoporosis without current pathological fracture; R26.89 Other abnormalities of gait and mobility; Z86.718 Personal history of other venous thrombosis and embolism; C85.90 Non-Hodgkin lymphoma, unspecified, unspecified site; K21.9 Gastro-esophageal reflux disease without esophagitis ==

== ENCOUNTER → 2021-10-16 | Outpatient (CLI) | payer MEDICARE, OTHER | END | disposition home or self-care (01) | LOC: MSC 15:00 | PROVIDERS: ATTEND Internal Medicine | DX: G47.00 Insomnia, unspecified (principal); M54.9 Dorsalgia, unspecified; M62.830 Muscle spasm of back; M06.9 Rheumatoid arthritis, unspecified; K52.9 Noninfective gastroenteritis and colitis, unspecified; L03.116 Cellulitis of left lower limb; L03.115 Cellulitis of right lower limb; Z79.2 Long term (current) use of antibiotics; E87.1 Hypo-osmolality and hyponatremia; R11.2 Nausea with vomiting, unspecified; M25.461 Effusion, right knee; Z91.81 History of falling; I89.0 Lymphedema, not elsewhere classified; S80.829D Blister (nonthermal), unspecified lower leg, subsequent encounter; F41.9 Anxiety disorder, unspecified; G62.9 Polyneuropathy, unspecified; K55.9 Vascular disorder of intestine, unspecified; A49.8 Other bacterial infections of unspecified site; I25.10 Atherosclerotic heart disease of native coronary artery without angina pectoris; E03.9 Hypothyroidism, unspecified; M81.0 Age-related osteoporosis without current pathological fracture; R26.89 Other abnormalities of gait and mobility; Z86.718 Personal history of other venous thrombosis and embolism; C85.90 Non-Hodgkin lymphoma, unspecified, unspecified site; K21.9 Gastro-esophageal reflux disease without esophagitis ==

== ENCOUNTER → 2021-10-28 | Outpatient (CLI) | payer MEDICARE, OTHER | END | disposition home or self-care (01) | LOC: MSC 15:30 | PROVIDERS: ATTEND Internal Medicine | DX: G47.00 Insomnia, unspecified (principal); M54.9 Dorsalgia, unspecified; M62.830 Muscle spasm of back; M06.9 Rheumatoid arthritis, unspecified; K52.9 Noninfective gastroenteritis and colitis, unspecified; L03.116 Cellulitis of left lower limb; L03.115 Cellulitis of right lower limb; Z79.2 Long term (current) use of antibiotics; E87.1 Hypo-osmolality and hyponatremia; R11.2 Nausea with vomiting, unspecified; M25.461 Effusion, right knee; Z91.81 History of falling; I89.0 Lymphedema, not elsewhere classified; S80.829D Blister (nonthermal), unspecified lower leg, subsequent encounter; F41.9 Anxiety disorder, unspecified; G62.9 Polyneuropathy, unspecified; K55.9 Vascular disorder of intestine, unspecified; A49.8 Other bacterial infections of unspecified site; I25.10 Atherosclerotic heart disease of native coronary artery without angina pectoris; E03.9 Hypothyroidism, unspecified; M81.0 Age-related osteoporosis without current pathological fracture; R26.89 Other abnormalities of gait and mobility; Z86.718 Personal history of other venous thrombosis and embolism; C85.90 Non-Hodgkin lymphoma, unspecified, unspecified site; K21.9 Gastro-esophageal reflux disease without esophagitis ==

== ENCOUNTER 2021-12-25 09:30 | Outpatient (CLI) | payer MEDICARE, OTHER | END 2021-12-25 23:59 | disposition home or self-care (01) | LOC: MSC 09:30 | PROVIDERS: ATTEND Internal Medicine | DX: G47.00 Insomnia, unspecified (principal); L03.116 Cellulitis of left lower limb; L03.115 Cellulitis of right lower limb; Z79.2 Long term (current) use of antibiotics; M54.9 Dorsalgia, unspecified; Z91.81 History of falling; M62.830 Muscle spasm of back; M06.9 Rheumatoid arthritis, unspecified; K52.9 Noninfective gastroenteritis and colitis, unspecified; E87.1 Hypo-osmolality and hyponatremia; R11.2 Nausea with vomiting, unspecified; M25.461 Effusion, right knee; I89.0 Lymphedema, not elsewhere classified; S80.829D Blister (nonthermal), unspecified lower leg, subsequent encounter; F41.9 Anxiety disorder, unspecified; G62.9 Polyneuropathy, unspecified; K55.9 Vascular disorder of intestine, unspecified; A49.8 Other bacterial infections of unspecified site; I25.10 Atherosclerotic heart disease of native coronary artery without angina pectoris; E03.9 Hypothyroidism, unspecified; M81.0 Age-related osteoporosis without current pathological fracture; R26.89 Other abnormalities of gait and mobility; Z86.718 Personal history of other venous thrombosis and embolism; C85.90 Non-Hodgkin lymphoma, unspecified, unspecified site; K21.9 Gastro-esophageal reflux disease without esophagitis ==

== ENCOUNTER 2022-03-19 09:00 | Outpatient (CLI) | payer MEDICARE, OTHER | END 2022-03-19 23:59 | disposition home or self-care (01) | LOC: MSC 09:00 | PROVIDERS: ATTEND Internal Medicine | DX: L03.116 Cellulitis of left lower limb (principal); Z79.2 Long term (current) use of antibiotics; I89.0 Lymphedema, not elsewhere classified; R25.1 Tremor, unspecified; G47.00 Insomnia, unspecified; M54.9 Dorsalgia, unspecified; M62.830 Muscle spasm of back; Z91.81 History of falling; M06.9 Rheumatoid arthritis, unspecified; K52.9 Noninfective gastroenteritis and colitis, unspecified; E87.1 Hypo-osmolality and hyponatremia; R11.2 Nausea with vomiting, unspecified; M25.461 Effusion, right knee; S80.829D Blister (nonthermal), unspecified lower leg, subsequent encounter; F41.9 Anxiety disorder, unspecified; G62.9 Polyneuropathy, unspecified; K55.9 Vascular disorder of intestine, unspecified; A49.8 Other bacterial infections of unspecified site; I25.10 Atherosclerotic heart disease of native coronary artery without angina pectoris; E03.9 Hypothyroidism, unspecified; M81.0 Age-related osteoporosis without current pathological fracture; R26.89 Other abnormalities of gait and mobility; Z86.718 Personal history of other venous thrombosis and embolism; C85.90 Non-Hodgkin lymphoma, unspecified, unspecified site; K21.9 Gastro-esophageal reflux disease without esophagitis ==

== ENCOUNTER → 2022-03-27 | Outpatient (CLI) | payer MEDICARE, OTHER | END | disposition home or self-care (01) | LOC: MSC 15:00 | PROVIDERS: ATTEND Internal Medicine | DX: H60.91 Unspecified otitis externa, right ear (principal); I89.0 Lymphedema, not elsewhere classified; R25.1 Tremor, unspecified; G47.00 Insomnia, unspecified; M54.9 Dorsalgia, unspecified; M62.830 Muscle spasm of back; M06.9 Rheumatoid arthritis, unspecified; K52.9 Noninfective gastroenteritis and colitis, unspecified; E87.1 Hypo-osmolality and hyponatremia; R11.2 Nausea with vomiting, unspecified; M25.461 Effusion, right knee; S80.829D Blister (nonthermal), unspecified lower leg, subsequent encounter; F41.9 Anxiety disorder, unspecified; G62.9 Polyneuropathy, unspecified; K55.9 Vascular disorder of intestine, unspecified; A49.8 Other bacterial infections of unspecified site; I25.10 Atherosclerotic heart disease of native coronary artery without angina pectoris; E03.9 Hypothyroidism, unspecified; M81.0 Age-related osteoporosis without current pathological fracture; R26.89 Other abnormalities of gait and mobility; Z86.718 Personal history of other venous thrombosis and embolism; C85.90 Non-Hodgkin lymphoma, unspecified, unspecified site; K21.9 Gastro-esophageal reflux disease without esophagitis ==

== ENCOUNTER 2022-04-09 14:00 | Outpatient (CLI) | payer MEDICARE, OTHER | END 2022-04-09 23:59 | disposition home or self-care (01) | LOC: MSC 14:00 | PROVIDERS: ATTEND Internal Medicine | DX: H60.91 Unspecified otitis externa, right ear (principal); I89.0 Lymphedema, not elsewhere classified; R60.0 Localized edema; L03.116 Cellulitis of left lower limb; L03.115 Cellulitis of right lower limb; R25.1 Tremor, unspecified; G47.00 Insomnia, unspecified; M54.9 Dorsalgia, unspecified; M62.830 Muscle spasm of back; M06.9 Rheumatoid arthritis, unspecified; K52.9 Noninfective gastroenteritis and colitis, unspecified; E87.1 Hypo-osmolality and hyponatremia; R11.2 Nausea with vomiting, unspecified; M25.461 Effusion, right knee; S80.829D Blister (nonthermal), unspecified lower leg, subsequent encounter; F41.9 Anxiety disorder, unspecified; G62.9 Polyneuropathy, unspecified; Z86.718 Personal history of other venous thrombosis and embolism; K55.9 Vascular disorder of intestine, unspecified; A49.8 Other bacterial infections of unspecified site; I25.10 Atherosclerotic heart disease of native coronary artery without angina pectoris; E03.9 Hypothyroidism, unspecified; M81.0 Age-related osteoporosis without current pathological fracture; R26.89 Other abnormalities of gait and mobility; C85.90 Non-Hodgkin lymphoma, unspecified, unspecified site; K21.9 Gastro-esophageal reflux disease without esophagitis ==

== ENCOUNTER → 2022-04-15 | Outpatient (CLI) | payer MEDICARE, OTHER | END | disposition home or self-care (01) | LOC: MSC 15:00 | PROVIDERS: ATTEND Internal Medicine | DX: L89.159 Pressure ulcer of sacral region, unspecified stage (principal); H60.60 Unspecified chronic otitis externa, unspecified ear; I89.0 Lymphedema, not elsewhere classified; R60.0 Localized edema; L03.116 Cellulitis of left lower limb; L03.115 Cellulitis of right lower limb; G47.00 Insomnia, unspecified; M54.9 Dorsalgia, unspecified; M62.830 Muscle spasm of back; M06.9 Rheumatoid arthritis, unspecified; K52.9 Noninfective gastroenteritis and colitis, unspecified; E87.1 Hypo-osmolality and hyponatremia; R11.2 Nausea with vomiting, unspecified; M25.461 Effusion, right knee; S80.829D Blister (nonthermal), unspecified lower leg, subsequent encounter; F41.9 Anxiety disorder, unspecified; G62.9 Polyneuropathy, unspecified; Z86.718 Personal history of other venous thrombosis and embolism; K55.9 Vascular disorder of intestine, unspecified; A49.8 Other bacterial infections of unspecified site; I25.10 Atherosclerotic heart disease of native coronary artery without angina pectoris; E03.9 Hypothyroidism, unspecified; M81.0 Age-related osteoporosis without current pathological fracture; R26.89 Other abnormalities of gait and mobility; C85.80 Other specified types of non-Hodgkin lymphoma, unspecified site; K21.9 Gastro-esophageal reflux disease without esophagitis ==

== ENCOUNTER → 2022-04-22 | Outpatient (CLI) | payer MEDICARE, OTHER | END | disposition home or self-care (01) | LOC: MSC 14:00 | PROVIDERS: ATTEND Internal Medicine | DX: L89.159 Pressure ulcer of sacral region, unspecified stage (principal); H60.60 Unspecified chronic otitis externa, unspecified ear; I89.0 Lymphedema, not elsewhere classified; L03.116 Cellulitis of left lower limb; L03.115 Cellulitis of right lower limb; G47.00 Insomnia, unspecified; M54.9 Dorsalgia, unspecified; M62.830 Muscle spasm of back; M06.9 Rheumatoid arthritis, unspecified; K52.9 Noninfective gastroenteritis and colitis, unspecified; E87.1 Hypo-osmolality and hyponatremia; R11.2 Nausea with vomiting, unspecified; M25.461 Effusion, right knee; F41.9 Anxiety disorder, unspecified; G62.9 Polyneuropathy, unspecified; Z86.718 Personal history of other venous thrombosis and embolism; I25.10 Atherosclerotic heart disease of native coronary artery without angina pectoris; E03.9 Hypothyroidism, unspecified; M81.0 Age-related osteoporosis without current pathological fracture; R26.89 Other abnormalities of gait and mobility; C85.80 Other specified types of non-Hodgkin lymphoma, unspecified site; K21.9 Gastro-esophageal reflux disease without esophagitis ==

== ENCOUNTER → 2022-05-15 | Outpatient (CLI) | payer MEDICARE, OTHER | END | disposition home or self-care (01) | LOC: MSC 14:30 | PROVIDERS: ATTEND Internal Medicine | DX: L89.159 Pressure ulcer of sacral region, unspecified stage (principal); I89.0 Lymphedema, not elsewhere classified; S80.829A Blister (nonthermal), unspecified lower leg, initial encounter; G47.00 Insomnia, unspecified; M54.9 Dorsalgia, unspecified; M62.830 Muscle spasm of back; M06.9 Rheumatoid arthritis, unspecified; K52.9 Noninfective gastroenteritis and colitis, unspecified; A49.8 Other bacterial infections of unspecified site; E87.1 Hypo-osmolality and hyponatremia; R11.2 Nausea with vomiting, unspecified; M25.461 Effusion, right knee; F41.9 Anxiety disorder, unspecified; G62.9 Polyneuropathy, unspecified; Z86.718 Personal history of other venous thrombosis and embolism; I25.10 Atherosclerotic heart disease of native coronary artery without angina pectoris; E03.9 Hypothyroidism, unspecified; M81.0 Age-related osteoporosis without current pathological fracture; R26.89 Other abnormalities of gait and mobility; C85.80 Other specified types of non-Hodgkin lymphoma, unspecified site; K21.9 Gastro-esophageal reflux disease without esophagitis ==

== ENCOUNTER → 2022-05-20 | Outpatient (CLI) | payer MEDICARE, OTHER | LOC: MSC 14:30 | PROVIDERS: ATTEND Internal Medicine | DX: L89.159 Pressure ulcer of sacral region, unspecified stage (principal); I89.0 Lymphedema, not elsewhere classified; S80.829D Blister (nonthermal), unspecified lower leg, subsequent encounter; G47.00 Insomnia, unspecified; M54.9 Dorsalgia, unspecified; M62.830 Muscle spasm of back; M06.9 Rheumatoid arthritis, unspecified; K52.9 Noninfective gastroenteritis and colitis, unspecified; A49.8 Other bacterial infections of unspecified site; E87.1 Hypo-osmolality and hyponatremia; M25.461 Effusion, right knee; F41.9 Anxiety disorder, unspecified; G62.9 Polyneuropathy, unspecified; Z86.718 Personal history of other venous thrombosis and embolism; I25.10 Atherosclerotic heart disease of native coronary artery without angina pectoris; E03.9 Hypothyroidism, unspecified; M81.0 Age-related osteoporosis without current pathological fracture; R26.89 Other abnormalities of gait and mobility; K21.9 Gastro-esophageal reflux disease without esophagitis ==

== ENCOUNTER → 2022-05-29 | Outpatient (CLI) | payer MEDICARE, OTHER | END | disposition home or self-care (01) | LOC: MSC 14:00 | PROVIDERS: ATTEND Internal Medicine | DX: L89.159 Pressure ulcer of sacral region, unspecified stage (principal); I89.0 Lymphedema, not elsewhere classified; L03.116 Cellulitis of left lower limb; L03.115 Cellulitis of right lower limb; G47.00 Insomnia, unspecified; M54.9 Dorsalgia, unspecified; M62.830 Muscle spasm of back; M06.9 Rheumatoid arthritis, unspecified; K52.9 Noninfective gastroenteritis and colitis, unspecified; E87.1 Hypo-osmolality and hyponatremia; M25.461 Effusion, right knee; F41.9 Anxiety disorder, unspecified; G62.9 Polyneuropathy, unspecified; Z86.718 Personal history of other venous thrombosis and embolism; A49.8 Other bacterial infections of unspecified site; I25.10 Atherosclerotic heart disease of native coronary artery without angina pectoris; E03.9 Hypothyroidism, unspecified; M81.0 Age-related osteoporosis without current pathological fracture; R26.89 Other abnormalities of gait and mobility; K21.9 Gastro-esophageal reflux disease without esophagitis ==

== ENCOUNTER → 2022-08-10 | Outpatient (CLI) | payer MEDICARE, OTHER | END | disposition home or self-care (01) | LOC: MSC 13:15 | PROVIDERS: ATTEND Internal Medicine | DX: L89.159 Pressure ulcer of sacral region, unspecified stage (principal); L08.89 Other specified local infections of the skin and subcutaneous tissue; Z79.2 Long term (current) use of antibiotics; I89.0 Lymphedema, not elsewhere classified; L03.116 Cellulitis of left lower limb; L03.115 Cellulitis of right lower limb; S80.829D Blister (nonthermal), unspecified lower leg, subsequent encounter; G47.00 Insomnia, unspecified; M54.9 Dorsalgia, unspecified; M62.830 Muscle spasm of back; M06.9 Rheumatoid arthritis, unspecified; K52.9 Noninfective gastroenteritis and colitis, unspecified; E87.1 Hypo-osmolality and hyponatremia; M25.461 Effusion, right knee; F41.9 Anxiety disorder, unspecified; G62.9 Polyneuropathy, unspecified; Z86.718 Personal history of other venous thrombosis and embolism; A49.8 Other bacterial infections of unspecified site; I25.10 Atherosclerotic heart disease of native coronary artery without angina pectoris; E03.9 Hypothyroidism, unspecified; M81.0 Age-related osteoporosis without current pathological fracture; R26.89 Other abnormalities of gait and mobility; K21.9 Gastro-esophageal reflux disease without esophagitis ==

== ENCOUNTER → 2022-08-18 | Outpatient (CLI) | payer MEDICARE, OTHER | END | disposition home or self-care (01) | LOC: MSC 14:30 | PROVIDERS: ATTEND Internal Medicine | DX: L89.229 Pressure ulcer of left hip, unspecified stage (principal); L89.159 Pressure ulcer of sacral region, unspecified stage; M86.9 Osteomyelitis, unspecified; Z79.2 Long term (current) use of antibiotics; I89.0 Lymphedema, not elsewhere classified; L03.116 Cellulitis of left lower limb; L03.115 Cellulitis of right lower limb; G47.00 Insomnia, unspecified; M54.9 Dorsalgia, unspecified; M62.830 Muscle spasm of back; M06.9 Rheumatoid arthritis, unspecified; K52.9 Noninfective gastroenteritis and colitis, unspecified; E87.1 Hypo-osmolality and hyponatremia; M25.461 Effusion, right knee; F41.9 Anxiety disorder, unspecified; G62.9 Polyneuropathy, unspecified; Z86.718 Personal history of other venous thrombosis and embolism; A49.8 Other bacterial infections of unspecified site; I25.10 Atherosclerotic heart disease of native coronary artery without angina pectoris; E03.9 Hypothyroidism, unspecified; M81.0 Age-related osteoporosis without current pathological fracture; R26.89 Other abnormalities of gait and mobility; K21.9 Gastro-esophageal reflux disease without esophagitis ==

== ENCOUNTER → 2022-08-21 | Outpatient (CLI) | payer MEDICARE, OTHER | END | disposition home or self-care (01) | LOC: MSC 14:00 | PROVIDERS: ATTEND Internal Medicine | DX: L89.229 Pressure ulcer of left hip, unspecified stage (principal); L89.159 Pressure ulcer of sacral region, unspecified stage; M86.9 Osteomyelitis, unspecified; Z79.2 Long term (current) use of antibiotics; I89.0 Lymphedema, not elsewhere classified; L03.116 Cellulitis of left lower limb; L03.115 Cellulitis of right lower limb; G47.00 Insomnia, unspecified; M54.9 Dorsalgia, unspecified; M62.830 Muscle spasm of back; M06.9 Rheumatoid arthritis, unspecified; K52.9 Noninfective gastroenteritis and colitis, unspecified; K21.9 Gastro-esophageal reflux disease without esophagitis; E87.1 Hypo-osmolality and hyponatremia; M25.461 Effusion, right knee; F41.9 Anxiety disorder, unspecified; G62.9 Polyneuropathy, unspecified; Z86.718 Personal history of other venous thrombosis and embolism; A49.8 Other bacterial infections of unspecified site; I25.10 Atherosclerotic heart disease of native coronary artery without angina pectoris; E03.9 Hypothyroidism, unspecified; M81.0 Age-related osteoporosis without current pathological fracture; R26.89 Other abnormalities of gait and mobility ==

== ENCOUNTER 2022-09-21 15:00 | Outpatient (CLI) | payer MEDICARE, OTHER | END 2022-09-21 23:59 | disposition home or self-care (01) | LOC: MSC 15:00 | PROVIDERS: ATTEND Internal Medicine | DX: L89.229 Pressure ulcer of left hip, unspecified stage (principal); L89.159 Pressure ulcer of sacral region, unspecified stage; M86.9 Osteomyelitis, unspecified; I89.0 Lymphedema, not elsewhere classified; L03.116 Cellulitis of left lower limb; L03.115 Cellulitis of right lower limb; Z79.2 Long term (current) use of antibiotics; G47.00 Insomnia, unspecified; M54.9 Dorsalgia, unspecified; M62.830 Muscle spasm of back; Z79.1 Long term (current) use of non-steroidal anti-inflammatories (NSAID); M06.9 Rheumatoid arthritis, unspecified; Z79.52 Long term (current) use of systemic steroids; K52.9 Noninfective gastroenteritis and colitis, unspecified; K21.9 Gastro-esophageal reflux disease without esophagitis; E87.1 Hypo-osmolality and hyponatremia; M25.461 Effusion, right knee; F41.9 Anxiety disorder, unspecified; G62.9 Polyneuropathy, unspecified; Z86.718 Personal history of other venous thrombosis and embolism; A49.8 Other bacterial infections of unspecified site; I25.10 Atherosclerotic heart disease of native coronary artery without angina pectoris; E03.9 Hypothyroidism, unspecified; M81.0 Age-related osteoporosis without current pathological fracture ==

== ENCOUNTER 2022-10-07 14:30 | Outpatient (CLI) | payer MEDICARE, OTHER | END 2022-10-07 23:59 | disposition home or self-care (01) | LOC: MSC 14:30 | PROVIDERS: ATTEND Internal Medicine | DX: L89.223 Pressure ulcer of left hip, stage 3 (principal); L89.159 Pressure ulcer of sacral region, unspecified stage; M86.9 Osteomyelitis, unspecified; I89.0 Lymphedema, not elsewhere classified; L03.116 Cellulitis of left lower limb; L03.115 Cellulitis of right lower limb; Z79.2 Long term (current) use of antibiotics; G47.00 Insomnia, unspecified; M54.9 Dorsalgia, unspecified; M62.830 Muscle spasm of back; Z79.1 Long term (current) use of non-steroidal anti-inflammatories (NSAID); M06.9 Rheumatoid arthritis, unspecified; Z79.52 Long term (current) use of systemic steroids; K52.9 Noninfective gastroenteritis and colitis, unspecified; K21.9 Gastro-esophageal reflux disease without esophagitis; E87.1 Hypo-osmolality and hyponatremia; M25.461 Effusion, right knee; F41.9 Anxiety disorder, unspecified; G62.9 Polyneuropathy, unspecified; Z86.718 Personal history of other venous thrombosis and embolism; A49.8 Other bacterial infections of unspecified site; I25.10 Atherosclerotic heart disease of native coronary artery without angina pectoris; E03.9 Hypothyroidism, unspecified; M81.0 Age-related osteoporosis without current pathological fracture; R26.89 Other abnormalities of gait and mobility ==

== ENCOUNTER 2022-10-20 10:00 | Outpatient (CLI) | payer MEDICARE, OTHER | END 2022-10-20 23:59 | disposition home or self-care (01) | LOC: MSC 10:00 | PROVIDERS: ATTEND Internal Medicine | DX: M79.605 Pain in left leg (principal); W19.XXXA Unspecified fall, initial encounter; L89.223 Pressure ulcer of left hip, stage 3; L89.159 Pressure ulcer of sacral region, unspecified stage; M86.9 Osteomyelitis, unspecified; I89.0 Lymphedema, not elsewhere classified; L03.116 Cellulitis of left lower limb; L03.115 Cellulitis of right lower limb; Z79.2 Long term (current) use of antibiotics; G47.00 Insomnia, unspecified; M54.9 Dorsalgia, unspecified; M62.830 Muscle spasm of back; Z79.1 Long term (current) use of non-steroidal anti-inflammatories (NSAID); M06.9 Rheumatoid arthritis, unspecified; Z79.52 Long term (current) use of systemic steroids; K52.9 Noninfective gastroenteritis and colitis, unspecified; K21.9 Gastro-esophageal reflux disease without esophagitis; E87.1 Hypo-osmolality and hyponatremia; M25.461 Effusion, right knee; F41.9 Anxiety disorder, unspecified; G62.9 Polyneuropathy, unspecified; Z86.718 Personal history of other venous thrombosis and embolism; A49.8 Other bacterial infections of unspecified site; I25.10 Atherosclerotic heart disease of native coronary artery without angina pectoris; E03.9 Hypothyroidism, unspecified; M81.0 Age-related osteoporosis without current pathological fracture; R26.89 Other abnormalities of gait and mobility ==